=== PATIENT | female | born 1965 | race Caucasian/White ===

== ENCOUNTER 2024-04-23 07:49 | Emergency (ER) | payer MEDICAID, SELFPAY ==
[2024-04-23 07:50] VITALS: BP 157/100; PULSE 98; RESP 18; TEMP 37.2; O2SAT 97; BMI 40.4
[2024-04-23 07:52] VITALS: BP 157/100; PULSE 98; RESP 18; TEMP 37.2; O2SAT 97
--- NOTE | 2024-04-23 08:21 | EDS_ITS ---
HPI History of Present Illness Chief Complaint: Other, Pain/Inj Informant: patient Narrative Narrative: 59-year-old female presenting to the emergency room with facial swelling. Patient states that her stepfather recently passed in hospice care. She has been under a lot of stress and when she is under stress she tends to grind her teeth. She is developed some left facial swelling that is worsened and painful. She states she went to urgent care and was advised to come to the emergency room for blood work as they are concerned that the infection from her sinuses may be in her bloodstream. She states that she felt like she might have a fever last night. She felt that her heart was racing. She has a dentist. [facility] Medical History Arthritis Lyme disease Sjogren syndrome with other organ involvement Hypothyroid Home Medications ?Medication ?Instructions ?Recorded ?Last Taken ?Type amoxicillin 875 mg-potassium 875 mg PO Q12H #20 TABLETS 04/23/24 Unknown Rx clavulanate 125 mg tablet hydrocodone-acetaminophen 5-325mg 1 tab PO Q6H PRN PRN Pain 3 days 04/23/24 Unknown Rx 5mg-325mg #12 TABLETS naproxen 500 mg tablet (Naprosyn) 500 mg PO BID PRN pain #20 tabs 04/23/24 Unknown Rx ranolazine 1,000 mg 1,000 mg PO BID 04/23/24 Unknown History tablet,extended release,12 hr Allergy/AdvReac Type Severity Reaction Status Date / Time trazodone AdvReac OTHER Verified 04/23/24 07:51 Social History Smoking Status: Never smoker [facility] ED Constitutional Constitutional ED: Reports fever(s) and subjective; Denies chills or weight loss Eyes Eyes: Denies change in vision or diplopia ENT ENT ED: Reports other Details: See HPI ; Denies ear pain, rhinorrhea or sore throat Cardiovascular Cardiovascular: Reports racing heartbeat; Denies chest pain, orthopnea or palpitations Respiratory/Chest Respiratory/Chest: Denies cough, dyspnea or orthopnea Gastrointestinal Gastrointestinal: Denies abdominal pain, diarrhea, nausea or vomiting Genitourinary Genitourinary ED: Denies dysuria, hematuria or urinary frequency Musculoskeletal Musculoskeletal: Denies arthralgias or myalgias Integumentary Denies abscess or rash Neurologic Neurologic: Denies headache(s) or weakness Psychiatric Psychiatric: Denies anxiety, depression, suicidal ideation or suicidal thoughts Endocrine Endocrinology: Denies polydipsia, polyphagia or polyuria Allergic/Immunologic Allergic/Immunologic ED: Denies mouth swelling, tongue swelling or urticaria EXAM Physical Exam Const Vital Signs: 04/23/24 07:50 04/23/24 07:52 04/23/24 08:03 Temperature 99 F 99 F Temperature Source Temporal Temporal Pulse Rate 98 98 Respiratory Rate 18 18 Respiratory Effort Normal Non-Labored Respiratory Pattern Normal Blood Pressure 157/100 H 157/100 H Blood Pressure Mean 119 119 Pulse Ox 97 97 Oxygen Delivery Method Room Air Room Air Positive well nourished, well developed and obese General Appearance ED: well developed Nutritional Appearance: obese HEENT Reports normocephalic, head/scalp atraumatic and moist mucous membranes HEENT Narrative: Mild left maxillary facial swelling without erythema. Located along the gumline in the first premolar region is some erythema mild gum swelling. No obvious drainable abscess at this time. Floor the mouth is soft. Tongue appears normal. Hard palate appears normal soft palate appears normal there is no trismus. Tympanic membrane appears normal. There is no rash. Ocular exam is negative Eyes PERRL and EOMs intact bilaterally Neck no lymphadenopathy, supple and no JVD Resp normal respiratory effort and clear to auscultation bilaterally Cardio regular rate, regular rhythm and no murmurs GI normal to inspection, nondistended, normoactive bowel sounds and non-tender Palpation: soft Back/Spine no CVA tenderness and normal ROM Extremity normal to inspection General Extremety ED: Negative for edema General Extremity: Negative for edema Neuro oriented x3 and CN's II-XII intact bilaterally Sensorium / Orientation: alert Motor Exam: strength 5/5 throughout Psych mental status grossly normal Mood & Affect: Negative for depressed or tearful Skin no rashes or lesions noted and no wounds MDM MDM MDM Narrative Medical decision making narrative: Differential diagnosis includes but not limited to but not limited to dental abscess ANUG facial cellulitis periorbital cellulitis orbital cellulitis sinusitis shingles It appears that the patient has a dental abscess causing facial swelling. I do not feel strongly that the patient requires blood work. I believe she requires antibiotics ice anti-inflammatories pain control and definitive dental care. Patient will be placed on Augmentin and naproxen and hydrocodone/acetaminophen. Urged to see dentistry as soon as possible. History & Record Review Discussion w/independent historian: Patient Discharge Plan Triage Chief Complaint: Other, Pain/Inj ED Provider: Branden Arita Dx/Rx/DC Orders Clinical Impression: Dental abscess, Facial swelling Instructions: ED Dental Abscess Prescriptions: New hydrocodone-acetaminophen 5-325 mg tablet 1 tab PO Q6H PRN PRN (Reason: Pain) 3 Days Qty: 12 0RF naproxen [Naprosyn] 500 mg tablet 500 mg PO BID PRN (Reason: pain) Qty: 20 0RF amoxicillin-pot clavulanate 875-125 mg tablet 875 mg PO Q12H Qty: 20 0RF No Action ranolazine 1,000 mg tablet extended release 12 hr 1,000 mg PO BID Primary Care Provider: Meg Zapata Referrals: Meg Zapata, [employer] [Primary Care Provider] - Activity Restrictions/Additional Instructions: I strongly recommend that you schedule early follow-up with your dentist. This is to provide definitive dental care for the abscess. Print Language: Indonesian Disposition Disposition: Home, Self Care
== END 2024-04-23 08:27 | disposition home or self-care (01) ==
PROVIDERS: Emergency Provider Emergency Medicine; PCP Nurse Practitioner Family; Visit Provider Emergency Medicine
DX: K04.7 Periapical abscess without sinus (principal); R22.0 Localized swelling, mass and lump, head; M35.09 Sjogren syndrome with other organ involvement; E03.9 Hypothyroidism, unspecified; Z79.899 Other long term (current) drug therapy
CPT/HCPCS: 99282

== ENCOUNTER → 2024-08-18 | Outpatient (CLI) | payer MEDICAID, SELFPAY ==
[2024-08-18 08:51] LABS: Absolute Lymphocyte Count 1.99 X10^3/uL (0.83-4.51); Absolute Neutrophil Count 4.7 X10^3/uL (2.0-7.7); Basophil# 0.05 X10^3/uL; Basophil% 0.7 % (0-1); Eosinophil# 0.17 X10^3/uL; Eosinophils% 2.3 % (0-5); Hematocrit 40.3 % (37-47); Hemoglobin 12.7 g/dL (12.0-15.0); Lymphocyte # 1.99 X10^3/ul (0.83-4.51); Lymphocyte % 27.1 % (19-41); Mean Corp Hgb Conc 31.5 g/dL (32-36); Mean Corpuscular Hgb 30.8 pg (27.0-32.0); Mean Corpuscular Volume 97.6 fL (81-99); Mean Platelet Vol. 10.1 fl (6.2-12.0); Monocyte# 0.42 X10^3/uL; Monocyte% 5.7 % (0-10); NRBC Flagged by Analyzer 0 % (0-5); Neutrophil % 64.1 % (47-70); Platelet Count 215 K/mm3 (150-450); RBC Distribution Width CV 17.6 % (11.6-14.6); RBC Distribution Width SD 63.2 fl (35.1-43.9); Red Blood Count 4.13 M/mm3 (4.2-5.4); White Blood Count 7.3 K/mm3 (4.4-11.0)
[2024-08-18 08:57] LABS: Erythrocyte Sedimentation Rate 18 mm/hr (0-30)
[2024-08-18 09:35] LABS: ALB/GLOB Ratio 1.1 RATIO (0.9-2.4); AST(SGOT) 16 U/L (15-37); Alanine Aminotransfer ALT/SGPT 33 U/L (13-56); Albumin, Serum 4.1 g/dL (3.2-5.0); Alkaline Phosphatase 115 U/L (45-117); Anion Gap 8 (5-15); BUN 16 mg/dL (7-18); BUN/Creat Ratio 13.9 RATIO (10-20); CRP 4.89 mg/L (0.0-3.0); Calcium,Total 9.7 mg/dL (8.5-10.1); Chloride 108 mmol/L (98-107); Creatinine, Serum 1.15 mg/dL (0.55-1.02); EST Glomerular Filtration Rate 52 mL/min (>60); Est Glom Filt Rate - Afr Amer 62 mL/min (>60); Globulin 3.7 g/dL (2.2-4.2); Glucose 120 mg/dL (74-106); LDH 98 U/L (84-246); Potassium 4.2 mmol/L (3.5-5.1); Protein, Total 7.8 g/dL (6.4-8.2); Sodium Level 140 mmol/L (136-145); T4 Free Direct 1.24 ng/dL (0.76-1.46)
[2024-08-22 17:07] LABS: Anti-Centromere B Ab <0.2 AI (0.0-0.9); Anti-Chromatin <0.2 AI (0.0-0.9); Anti-Jo <0.2 AI (0.0-0.9); Anti-Scleroderma-70 AB <0.2 AI (0.0-0.9); Anti-dsDNA Ab <1 IU/mL (0-9); Beef <0.10 kU/L (Class 0); Chocolate <0.10 kU/L (Class 0); Codfish <0.10 kU/L (Class 0); Corn <0.10 kU/L (Class 0); Egg, Whole <0.10 kU/L (Class 0); Milk (Cow) <0.10 kU/L (Class 0); Mussels <0.10 kU/L (Class 0); Peanut <0.10 kU/L (Class 0); Pork <0.10 kU/L (Class 0); RNP Ab 0.2 AI (0.0-0.9); SJOGREN'S Anti-SS-A test < 0.2 AI (0.0-0.9); SJOGREN'S Anti-SS-B test < 0.2 AI (0.0-0.9); Salmon <0.10 kU/L (Class 0); Shrimp <0.10 kU/L (Class 0); Smith Ab <0.2 AI (0.0-0.9); Soybean <0.10 kU/L (Class 0); Tuna <0.10 kU/L (Class 0); Wheat <0.10 kU/L (Class 0)
[2024-08-23 16:09] LABS: ACCA 5 units (0-90); ALCA 6 units (0-60); AMCA 23 units (0-100); Albumin 3.8 g/dL (2.9-4.4); Alpha-1-Globulins 0.2 g/dL (0.0-0.4); Alpha-2-Globulins 0.8 g/dL (0.4-1.0); Cytoplasmic Ab (C-ANCA) <1:20 titer (Neg:<1:20); Endomysial Antibody IgA Negative (Negative); Gamma Globulin 1.2 g/dL (0.4-1.8); Immunoglobulin A 92 mg/dL (87-352); Immunoglobulin E 23 IU/mL (6-495); Immunoglobulin G 663 mg/dL (586-1602); Immunoglobulin M 1001 mg/dL (26-217); PROEL- TOTAL PROTEIN 7.2 g/dL (6.0-8.5); Perinuclear Ab (P-ANCA) <1:20 titer (Neg:<1:20); gASCA 16 units (0-50); t-Transglutaminase IgA <2 U/mL (0-3)
== END | disposition home or self-care (01) ==
LOC: LAB 08:29
PROVIDERS: PCP Nurse Practitioner Family
DX: K58.9 Irritable bowel syndrome, unspecified (principal); K22.70 Barrett's esophagus without dysplasia
CPT/HCPCS: 36415; 80053; 82784; 82785; 83516; 83615; 84165; 84439; 84443; 84481; 85025; 85652; 86003; 86005; 86036; 86037; 86140; 86225; 86235; 86255; 86334; 86671

== ENCOUNTER → 2024-09-08 | Outpatient (CLI) | payer MEDICAID, SELFPAY ==
--- NOTE | 2024-09-08 07:17 | CT_ITS ---
INDICATION: chronic diarrhea -- IV/PO contrrast EXAMINATION: CT Abdomen And Pelvis W/ Contrast Injection TECHNIQUE: Helically acquired images were obtained of the abdomen and pelvis with sagittal and coronal reconstructed images. Individualized dose optimization techniques were used for this CT. IV contrast dosage and agent: 100 mL of Isovue-370. Oral contrast: Contrast seen in the stomach, small bowel and proximal colon. COMPARISON: None. FINDINGS: VESSELS: No abdominal aortic aneurysm or dissection. Circumaortic left renal vein. LIVER: No evidence of a mass. No intrahepatic or extrahepatic biliary duct dilation. Mild diffuse decreased attenuation of the liver which may represent fatty infiltration. GALLBLADDER: Status post cholecystectomy. PANCREAS: No focal solid or cystic mass. No evidence of pancreatitis. SPLEEN: Normal. ADRENAL GLANDS: Normal. KIDNEYS AND URETERS: No urinary tract stone. No hydronephrosis or hydroureter. No significant asymmetric perinephric stranding. URINARY BLADDER: Unremarkable. BOWEL: No evidence of diverticulosis or diverticulitis. Appendix appears normal. No evidence of bowel obstruction. REPRODUCTIVE ORGANS: No evidence of a pelvic mass. PERITONEUM: No intraabdominal free fluid or free air. LYMPH NODES: No pathologically enlarged mesenteric or retroperitoneal lymph nodes. ABDOMINAL WALL: No abdominal or pelvic wall hernia. BONES: No acute abnormality. LOWER CHEST: Visualized lung bases are unremarkable. CT/Abdomen/Pelvis WITH Contrast IMPRESSION: 1. No acute abnormality. 2. Decreased attenuation of the liver which may represent fatty infiltration. Electronically Signed: Grayson Basurto DO at 22:54 EDT ,
== END | disposition home or self-care (01) ==
LOC: CT 07:17
PROVIDERS: PCP Nurse Practitioner Family
DX: K22.70 Barrett's esophagus without dysplasia (principal); K58.9 Irritable bowel syndrome, unspecified
CPT/HCPCS: 74177; Q9967

== ENCOUNTER → 2024-09-24 | Outpatient (CLI) | payer MEDICAID, SELFPAY ==
[2024-09-27 19:07] LABS: Pancreatic Elastase, Fecal > 800 (>200)
[2024-09-28 15:08] LABS: Calprotectin, Stool 97 ug/g (0-120)
== END | disposition home or self-care (01) ==
LOC: LABSPEC 16:23
PROVIDERS: PCP Nurse Practitioner Family
DX: K58.9 Irritable bowel syndrome, unspecified (principal); K22.70 Barrett's esophagus without dysplasia
CPT/HCPCS: 82653; 83630; 83993; 87177; 87209; 87329; 87493; 87506

== ENCOUNTER → 2024-09-27 | Outpatient (CLI) | payer MEDICAID, SELFPAY | END | disposition home or self-care (01) | LOC: NM 10:56 | PROVIDERS: PCP Nurse Practitioner Family | DX: K22.70 Barrett's esophagus without dysplasia (principal); K58.9 Irritable bowel syndrome, unspecified | CPT/HCPCS: 78264; A9541 ==

== ENCOUNTER 2024-10-07 10:11 | Inpatient (IN) | payer MEDICAID, SELFPAY ==
[2024-10-07] VITALS (7 sets, daily range): BP systolic 116–156; BP diastolic 75–90; PULSE 53–86; RESP 12–22; TEMP 36.2–36.7; O2SAT 95–100; BMI 38.4; BMI 40.6
[2024-10-07] MEDS: diazePAM 2 MG Tablet PO (11:06)
[2024-10-07] MEDS: Morphine 4 MG/ML Syringe IV (11:06)
[2024-10-07 11:08] LABS: Absolute Lymphocyte Count 2.13 X10^3/uL (0.83-4.51); Absolute Neutrophil Count 5.5 X10^3/uL (2.0-7.7); Basophil# 0.06 X10^3/uL; Basophil% 0.7 % (0-1); Eosinophil# 0.18 X10^3/uL; Eosinophils% 2.2 % (0-5); Lymphocyte # 2.13 X10^3/ul (0.83-4.51); Lymphocyte % 25.7 % (19-41); Mean Corp Hgb Conc 32.5 g/dL (32-36); Mean Corpuscular Hgb 31.1 pg (27.0-32.0); Mean Corpuscular Volume 95.7 fL (81-99); Mean Platelet Vol. 9.6 fl (6.2-12.0); Monocyte# 0.43 X10^3/uL; Monocyte% 5.2 % (0-10); NRBC Flagged by Analyzer 0 % (0-5); Neutrophil # 5.45 X10^3/uL (2.7-7.7); Neutrophil % 65.8 % (47-70); Platelet Count 242 K/mm3 (150-450); RBC Distribution Width CV 15.1 % (11.6-14.6); RBC Distribution Width SD 52.4 fl (35.1-43.9); Red Blood Count 4.18 M/mm3 (4.2-5.4); White Blood Count 8.3 K/mm3 (4.4-11.0)
[2024-10-07] MEDS: Ondansetron 4 MG/2 ML Vial IV (11:14)
[2024-10-07 11:16] LABS: International Normalized Ratio 0.9; Prothrombin Time (Protime)PT. 12.4 SECONDS (11.7-14.9)
[2024-10-07 11:18] LABS: Partial Thromboplast Time 30.2 Seconds (24.1-36.2)
[2024-10-07 11:32] LABS: BNP,B-Type NATRIURETIC PEPTIDE 12.3 pg/mL (0-100)
[2024-10-07 11:47] LABS: Anion Gap 6 (5-15); BUN 15 mg/dL (7-18); BUN/Creat Ratio 13.6 RATIO (10-20); Calcium,Total 9.2 mg/dL (8.5-10.1); Chloride 106 mmol/L (98-107); EST Glomerular Filtration Rate 54 mL/min (>60); Est Glom Filt Rate - Afr Amer 66 mL/min (>60); Estimated Creatinine Clearance 65.44 ml/min; Glucose 135 mg/dL (74-106); Potassium 4.3 mmol/L (3.5-5.1); Sodium Level 137 mmol/L (136-145); Troponin-I HS (w/2H Reflex) 198 pg/mL (3.0-54.0)
[2024-10-07 13:05] LABS: Reflex Troponin-HS? (from REC) Y
[2024-10-07 13:36] LABS: Troponin-I HS 200 pg/mL (3.0-54.0)
[2024-10-07] MEDS: Nitroglycerin SL (ED/IMG/CATH) 0.4 MG TABLET SL (13:47)
[2024-10-07] MEDS: 0.9% Normal Saline (1000mL) 1,000 ML 999 ML IV (13:49)
[2024-10-07] MEDS: Ibuprofen 400 MG Tablet 800 MG PO ×2 (16:41→21:10)
[2024-10-07 19:20] LABS: Troponin-I HS 163 pg/mL (3.0-54.0)
[2024-10-07] MEDS: Nystatin Powder 15gm Bottle 1 APPLIC TOPICAL (21:10)
[2024-10-07] MEDS: Gabapentin 300 MG Capsule PO (21:10)
[2024-10-07 21:27] LABS: Troponin-I HS 157 pg/mL (3.0-54.0)
[2024-10-08 01:48] LABS: Troponin-I HS 158 pg/mL (3.0-54.0)
[2024-10-08 03:42] VITALS: BP 109/71; PULSE 77; RESP 18; TEMP 35.9; O2SAT 95
[2024-10-08 03:45] VITALS: O2SAT 95
[2024-10-08 04:11] VITALS: BMI 40.3
[2024-10-08 06:31] LABS: Absolute Lymphocyte Count 1.77 X10^3/uL (0.83-4.51); Absolute Neutrophil Count 4.8 X10^3/uL (2.0-7.7); Basophil# 0.03 X10^3/uL; Basophil% 0.4 % (0-1); Eosinophil# 0.17 X10^3/uL; Eosinophils% 2.4 % (0-5); Hematocrit 35.7 % (37-47); Hemoglobin 11.5 g/dL (12.0-15.0); Lymphocyte # 1.77 X10^3/ul (0.83-4.51); Lymphocyte % 24.7 % (19-41); Mean Corp Hgb Conc 32.2 g/dL (32-36); Mean Corpuscular Hgb 31.2 pg (27.0-32.0); Mean Corpuscular Volume 96.7 fL (81-99); Mean Platelet Vol. 9.9 fl (6.2-12.0); Monocyte# 0.41 X10^3/uL; Monocyte% 5.7 % (0-10); NRBC Flagged by Analyzer 0 % (0-5); Neutrophil # 4.76 X10^3/uL (2.7-7.7); Neutrophil % 66.4 % (47-70); Platelet Count 209 K/mm3 (150-450); RBC Distribution Width CV 15.2 % (11.6-14.6); RBC Distribution Width SD 54.5 fl (35.1-43.9); Red Blood Count 3.69 M/mm3 (4.2-5.4); White Blood Count 7.2 K/mm3 (4.4-11.0)
[2024-10-08 06:44] LABS: International Normalized Ratio 0.9; Prothrombin Time (Protime)PT. 12.4 SECONDS (11.7-14.9)
[2024-10-08 06:59] LABS: ALB/GLOB Ratio 0.9 RATIO (0.9-2.4); AST(SGOT) 8 U/L (15-37); Alanine Aminotransfer ALT/SGPT 15 U/L (13-56); Alkaline Phosphatase 102 U/L (45-117); Anion Gap 5 (5-15); BUN 19 mg/dL (7-18); BUN/Creat Ratio 20.1 RATIO (10-20); Bilirubin, Direct 0.05 mg/dL (0.00-0.30); Calcium,Total 8.8 mg/dL (8.5-10.1); Chloride 107 mmol/L (98-107); Creatinine, Serum 0.95 mg/dL (0.55-1.02); EST Glomerular Filtration Rate 65 mL/min (>60); Est Glom Filt Rate - Afr Amer 78 mL/min (>60); Estimated Creatinine Clearance 77.79 ml/min; Globulin 3.2 g/dL (2.2-4.2); Glucose 125 mg/dL (74-106); Magnesium 2.4 mg/dL (1.6-2.6); Phosphorus 3.8 mg/dL (2.5-4.9); Potassium 4.3 mmol/L (3.5-5.1); Protein, Total 6.2 g/dL (6.4-8.2); Sodium Level 139 mmol/L (136-145)
[2024-10-08 07:30] VITALS: O2SAT 95
[2024-10-08 09:32] VITALS: BP 110/81; PULSE 70; RESP 16; TEMP 36.1; O2SAT 98
[2024-10-08] MEDS: Gabapentin 300 MG Capsule PO (09:42)
[2024-10-08] MEDS: Ibuprofen 400 MG Tablet 800 MG PO ×2 (09:42→13:37)
[2024-10-08] MEDS: Levothyroxine 100 MCG Tablet 200 MCG PO (09:42)
[2024-10-08] MEDS: Enoxaparin 40 MG/0.4 ML Syringe SC (09:43)
[2024-10-08] MEDS: Nystatin Powder 15gm Bottle 1 APPLIC TOPICAL (09:43)
[2024-10-08 13:17] LABS: Cholesterol 235 mg/dL (200); High Density Lipoprotein 28 mg/dL; Triglycerides 226 mg/dL; Very Low Density Lipoprotein 45 mg/dL (5-40)
[2024-10-08 13:18] LABS: Erythrocyte Sedimentation Rate 33 mm/hr (0-30)
[2024-10-08 13:30] VITALS: BP 129/83; PULSE 68; RESP 18; TEMP 36.5; O2SAT 95
[2024-10-08] MEDS: Aspirin E.C. 81 MG Tablet PO (13:31)
[2024-10-08] MEDS: Clopidogrel Bisulfate 75 MG Tablet PO (13:31)
[2024-10-08] MEDS: amLODIPine 2.5 MG Tablet PO (13:31)
[2024-10-08] MEDS: Pantoprazole Sodium 20 MG Tablet PO (13:31)
[2024-10-08] MEDS: guaiFENesin/Codeine 5 ML UDC 10 ML PO (13:38)
[2024-10-08 14:49] LABS: T4 Free Direct 0.71 ng/dL (0.76-1.46)
[2024-10-11 16:09] LABS: Mycoplasma Pneum AB IgG 172 U/mL (0-99); Mycoplasma pneum. AB IgM < 770 U/mL (0-769)
== END 2024-10-08 16:04 | disposition home or self-care (01) | DRG 203 ==
LOC: ED 10:37 → PCU 14:51
PROVIDERS: Internal Medicine Cardiovascular Disease; Admitting Provider Internal Medicine; Emergency Provider Surgery; PCP Nurse Practitioner Family
DX: M94.0 Chondrocostal junction syndrome [Tietze] (principal); J15.7 Pneumonia due to Mycoplasma pneumoniae; J44.0 Chronic obstructive pulmonary disease with (acute) lower respiratory infection; E03.9 Hypothyroidism, unspecified; I25.10 Atherosclerotic heart disease of native coronary artery without angina pectoris; F17.210 Nicotine dependence, cigarettes, uncomplicated; Z90.710 Acquired absence of both cervix and uterus; Z86.73 Personal history of transient ischemic attack (TIA), and cerebral infarction without residual deficits; Z90.49 Acquired absence of other specified parts of digestive tract; R73.03 Prediabetes
CPT/HCPCS: 36415; 71275; 80048; 80053; 80061; 80076; 83036; 83735; 83880; 84100; 84439; 84443; 84484; 85025; 85610; 85652; 85730; 86738; 87631; 93005; 93306; 99285; 99406; J7030; Q9967; A4216; J2405

== ENCOUNTER → 2024-12-31 | Outpatient (CLI) | payer MEDICAID, SELFPAY ==
--- NOTE | 2024-12-31 07:04 | US_ITS ---
PROCEDURE: ABD LIMITED W/ ELASTOGRAPHY REASON FOR EXAM: Fatty infiltration of the liver. COMPARISON: None. TECHNIQUE: Right upper quadrant abdominal ultrasound. Marcia ElastQ Imaging shear wave elastography for non-invasive assessment of liver tissue stiffness. Marcia EPIQ Elite. FINDINGS: LIVER: Size: Unremarkable Length: 17.3 cm Echotexture: Diffusely echogenic suggesting fatty infiltration Contour: Normal Lesions: None identified Elastography: EQI Med: 17.33 kPa EQI Med Dimitris: 2.39 m/s IQR/Med: 11 %* GALLBLADDER: Surgically absent. COMMON BILE DUCT: Normal measures 3 mm.. PANCREAS: Normal Visualized portions of the right kidney are unremarkable. No right upper quadrant ascites. US/ABD Limited w/ Elastography IMPRESSION: SEVERE HEPATIC FIBROSIS / CIRRHOSIS Reference Values: SRU <1.37 m/s (5.7kPa): No to mild fibrosis 1.37 m/s - 2.2 m/s: Moderate to severe fibrosis >2.2 m/s (15kPa): Significant fibrosis / cirrhosis METAVIR Score F2 or higher: 1.34 m/s (5.7kPa) F3 or higher: 1.55 m/s (7.3kPa) F4: 1.80 m/s (10kPa) * If the IQR/Med is >30%, the variance in the measurements is a large and the a ccuracy of the measurement may be in question. Reading Location: [place] [id number]
== END | disposition home or self-care (01) ==
LOC: US 07:03
PROVIDERS: PCP Nurse Practitioner Family
DX: K76.0 Fatty (change of) liver, not elsewhere classified (principal)
CPT/HCPCS: 76705; 76981

== ENCOUNTER → 2025-01-03 | Outpatient (CLI) | payer MEDICAID, SELFPAY ==
[2025-01-03 15:04] LABS: Platelet Count 264 K/mm3 (150-450)
== END | disposition home or self-care (01) ==
LOC: LAB 14:05
PROVIDERS: PCP Nurse Practitioner Family
DX: K74.00 Hepatic fibrosis, unspecified (principal)
CPT/HCPCS: 36415; 85049; 85610; 85730

== ENCOUNTER → 2025-01-24 | Outpatient (CLI) | payer MEDICAID, SELFPAY ==
[2025-01-24] VITALS (12 sets, daily range): BP systolic 136–176; BP diastolic 74–129; PULSE 68–82; RESP 18–31; TEMP 36.1; O2SAT 92–98; BMI 41.5
--- NOTE | 2025-01-24 | LIVB_PTH ---
PATIENT: NICO VITAL LOC: IN U#:[id number] AGE/SX: 59/F ROOM: RE01/24/[address]: ALONZO Morris : 1965 BED: DIS: 01/24/2025 SPEC #: [id number] RECD: 01/24/25 10:43 STATUS: PAXTON REJonathan #: [id number] ELOISA: 01/24/25 00:[address]: Dennise Jimenez DEPT: SURGICAL PATHOLOGY RECD BY: Nataliya Fish ENTERED: 01/24/25 11:09 SP TYPE: LIVER BX OTHR DR: ALONZO Gomez Tissues: Liver, NOS Procedures: PAS with Diastase (control) Trichrome (control) Special Stain Group I PAS Stain (control) Surgery Specimen Level V Retic (control) Iron Stain (control) HEADER OPERATION: CT- guided liver biopsy PRE-OP DIAGNOSIS: Fatty liver TISSUE SUBMITTED: 18 gauge x 4 cores MICROSCOPIC DIAGNOSIS A. Liver core biopsies, CT guided: a. 5 liver core biopsies with adequate portal tracts for evaluation. b. Predominant pattern: Mild macrosteastosis. c. Lymphocytic inflammation in portal tract with very little interface hepatitis (Stage 2). d. Portal fibrosis with no bridging fibrosis (Stage 1). e. Occasional bile duct proliferation. f. No hepatocyte necrosis or malignancy. 02/02/2025 COMMENT Possible causes for this pattern of hepatic injury include alcohol and metabolic syndrome. Consultation should be made with the patient's history, radiologic studies, and laboratory findings. MICROSCOPIC DESCRIPTION Slides are reviewed. No cholestasis identified. A reticulin stain with appropriate controls shows the hepatocyte plates to be of appropriate thickness. An iron stain with controls shows no iron deposition. PAS stains with and without diastase and appropriate controls show glycogen and no PAS positive / diastase resistant material. A trichrome stain shows mild portal fibrosis. GROSS DESCRIPTION A. Received in fixative is one container labeled with the patient's name and designated CT-guided liver biopsy. The specimen consists of four 18gauge needle cores. Three of them measure 1.8cm in length and the fourth measures 1.1cm in length submitted in their entirety in one cassette. mr 01/24/2025 CPT:58479 ,[id number]
[2025-01-24 09:18] LABS: Absolute Lymphocyte Count 2.46 X10^3/uL (0.83-4.51); Absolute Neutrophil Count 7.8 X10^3/uL (2.0-7.7); Basophil# 0.05 X10^3/uL; Basophil% 0.5 % (0-1); Eosinophil# 0.12 X10^3/uL; Eosinophils% 1.1 % (0-5); Hematocrit 40.3 % (37-47); Hemoglobin 12.5 g/dL (12.0-15.0); Lymphocyte # 2.46 X10^3/ul (0.83-4.51); Lymphocyte % 22.2 % (19-41); Mean Corpuscular Hgb 30.6 pg (27.0-32.0); Mean Corpuscular Volume 98.8 fL (81-99); Mean Platelet Vol. 10.7 fl (6.2-12.0); Monocyte# 0.64 X10^3/uL; Monocyte% 5.8 % (0-10); NRBC Flagged by Analyzer 0 % (0-5); Neutrophil # 7.76 X10^3/uL (2.7-7.7); Neutrophil % 69.9 % (47-70); Platelet Count 250 K/mm3 (150-450); RBC Distribution Width CV 15.2 % (11.6-14.6); RBC Distribution Width SD 55.7 fl (35.1-43.9); Red Blood Count 4.08 M/mm3 (4.2-5.4); White Blood Count 11.1 K/mm3 (4.4-11.0)
[2025-01-24 09:34] LABS: Prothrombin Time (Protime)PT. 12.9 SECONDS (11.7-14.9)
[2025-01-24] MEDS: Midazolam 2 MG/2 ML Syringe IV (10:11)
[2025-01-24] MEDS: fentaNYL 100 MCG/2 ML Ampul IV ×2 (10:13→10:30)
[2025-01-24] MEDS: 0.9% Saline Lock 10 ML Syringe IV (10:14)
--- NOTE | 2025-01-24 10:15 | CT_ITS ---
PROCEDURE: BIOPSY/INJ OR NEEDLE PLACEMENT REASON FOR EXAM: METAVIR F4 TECHNIQUE: The procedure as well as the benefits and possible complications including infection and bleeding were explained to the patient. Informed consent was obtained. The patient was brought into the CT scan unit. Conscious sedation was performed. The patient received 2 mg of Versed and 75 mcg of fentanyl intravenously. Conscious sedation was started at 10:11 a.m. and terminated at 10:33 a.m.. The patient was independently monitored by the department nurse. The overlying skin was prepped and draped in usual sterile fashion. Following local anesthetic application, 4 core biopsies of the left lobe of the liver were performed utilizing 18 gauge core biopsy needle system. The patient tolerated the procedure well. No immediate complication was identified. COMPARISON: None. FINDINGS: Successful CT-guided core biopsies of the left lobe of the liver. CT/Biopsy/Inj or Needle Placement IMPRESSION: Successful CT-guided core biopsies of the left lobe of the liver as described. The patient tolerated the procedure well. No immediate complication is identified. One or more dose reduction techniques were used (e.g., Automated exposure contr ol, adjustment of the mA and/or kV according to patient size, use of iterative reconstruction technique). Reading Location: [place] [address]
[2025-01-24] MEDS: Lidocaine 2% (20 ml mdv) 20 ML Vial INFILT (10:30)
== END | disposition home or self-care (01) ==
LOC: CT 08:56
PROVIDERS: Radiology Diagnostic Radiology; PCP Nurse Practitioner Family
DX: K76.0 Fatty (change of) liver, not elsewhere classified (principal)
CPT/HCPCS: 47000; 36415; 77012; 85025; 85610; 85730; 88307; 99156; A4216

== ENCOUNTER 2025-02-10 11:17 | Day surgery (SDC) | payer MEDICAID, SELFPAY ==
--- NOTE | 2025-02-07 14:32 | PAT.ANESEVAL ---
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 When Was Last Pacemaker Check QUESTION #4 FULL TEXT: You/Your Family Experience fever (hyperthermia) with Anesthesia Last Oral Intake Last Oral intake: Last Oral Intake NPO since Meds taken in AM with sips of water? Meds patient instructed to take am of surgery PONV PONV - game programmer: PONV - game programmer Female Yes 02/07/25 14:04 HX of Motion Sickness No 02/07/25 14:04 HX of N/V After Surgery No 02/07/25 14:04 Non-Smoker No 02/07/25 14:04 Duration of Surgery greater No 02/07/25 14:04 than 60 minutes Number of Risk Factors 1 02/07/25 14:04 PONV Score Low Risk 02/07/25 14:04 Height & Weight Height & Weight: Anesthesia: Height & Weight Height 5 ft 4 in 10/07/24 15:17 Respiratory Assessment Respiratory Assessment - game programmer: Respiratory Tract Infection Hx - game programmer Hx Respiratory Tract Infection No 02/07/25 14:04 STOP Sleep Apnea STOP Sleep Apnea - game programmer: STOP Sleep Apnea - game programmer Hx Hypertension No 02/07/25 14:04 Hx Sleep Apnea Yes 02/07/25 14:04 CPAP Yes 02/07/25 14:04 BIPAP No 02/07/25 14:04 Do you snore loudly (louder than talking or can be heard Do you often feel tired/ fatigued/ sleepy during daytime? Has anyone observed you stop breathing during sleep? STOP Results Positive 02/07/25 14:04 QUESTION #5 FULL TEXT : Do you snore loudly (louder than talking or can be heard through closed doors)? Tobacco Use History Tobacco Use History - game programmer: Tobacco Use History - game programmer Tobacco Use Smoking Status Current every day smoker 02/07/25 14:04 Hx Tobacco Use Yes 02/07/25 14:04 Years Smoking Packs Smoked per Day Smoking Cessation Date was within the last 15 years Hx Smoking Cessation Date Hx Smoking Cessation Counseling Hematologic Medial History Hematologic Hx - game programmer: Hematologic Medical Hx - milk of lime slaker Hx of Blood Transfusion No 02/07/25 14:04 Hx of Transfusion in last 3 No 02/07/25 14:04 Months Date of Last Transfusion (if within last 3 months) Ever experience any problems No 02/07/25 14:04 with transfusion(s)? Specify any problems Hx of Preganancy in last 3 No 02/07/25 14:04 Months Nurse Filling Out Transfusion VLEHMAN 02/07/25 14:04 & Questions: Date: 02/07/25 02/07/25 14:04 Time: 14:17 02/07/25 14:04 Patient unable to answer at this time (ie. confused, unrespo /Reproduction History /Reproductive History - game programmer: /Reproductive Hx- game programmer Hx Now No 02/07/25 14:04 Gestational Age (in weeks): EDC: Hx Hx Para Hx Section SAB No 02/07/25 14:04 PFSH Medical History (Updated 02/07/25 @ 14:16 by Rylie Coe) Wears glasses Cancer Anxiety Thyroid disease Diabetes Ambulates with cane Anemia Hepatitis High cholesterol Migraine headache Difficulty swallowing Heartburn Gastric reflux Smoker CPAP (continuous positive airway pressure) dependence Sleep apnea Asthma Shortness of breath on exertion Hoarseness Chronic cough Leg cramps History of echocardiogram History of stress test Cardiology follow-up encounter Mycoplasma pneumonia Controlled type 2 diabetes mellitus TIA (transient ischemic attack) CHINO (obstructive sleep apnea) Depression Cardiac microvascular disease CAD (coronary artery disease) Arthritis Lyme disease Sjogren syndrome with other organ involvement Hypothyroid Home Medications ?Medication ?Instructions ?Recorded ?Last Taken ?Type gabapentin 300 mg capsule 300 mg PO BID 08/18/24 10/06/24 History levothyroxine 200 mcg tablet 200 mcg PO DAILY 10/07/24 10/06/24 History metoclopramide HCl 5 mg tablet 5 mg PO QAC #90 tabs 10/11/24 Unknown Rx (Reglan) bupropion HCl 150 mg tablet,12 hr 150 mg PO BID 12/17/24 Unknown History sustained-release (Wellbutrin SR) famotidine 20 mg tablet 20 mg PO QHS #30 tabs 12/17/24 Unknown Rx pantoprazole 20 mg tablet,delayed 20 mg PO QDAY #30 tabs 12/17/24 Unknown Rx release ranolazine 500 mg tablet,extended 1,000 mg PO BID 12/17/24 Unknown History release,12 hr metformin 500 mg tablet,extended 500 mg PO DAILY 01/21/25 Unknown History release 24 hr pravastatin 10 mg tablet 10 mg PO DAILY 01/21/25 Unknown History vitamin E (dl, acetate) 180 mg 180 mg PO DAILY 02/07/25 Unknown History (400 unit) capsule Allergy/AdvReac Type Severity Reaction Status Date / Time trazodone AdvReac OTHER Verified 02/07/25 13:59 Family History Mother Arthritis Hypertension HLD (hyperlipidemia) TIA (transient ischemic attack) Father Heart disease Hypertension HLD (hyperlipidemia) Surgical History (Updated 02/07/25 @ 14:16 by Rylie Coe) History of cardiac catheterization History of partial hysterectomy History of cholecystectomy Social History Smoking Status: Current every day smoker tobacco type: cigarettes alcohol intake: never substance use type: marijuana Audit: Pertinent Findings Pertinent Findings EKG Perinent findings: October 07, 2024. Normal sinus rhythm 60 bpm. Nonspecific T wave abnormality. Echo (EF%) pertinent findings: 10/08/2024. EF 65% mild left ventricular hypertrophy. Recommendation Anesthesia Recommendation Anesthesia recommendation: OPTIMIZED for anesthesia
[2025-02-10] VITALS (7 sets, daily range): BP systolic 97–135; BP diastolic 69–83; PULSE 82–88; RESP 16–18; TEMP 36.3–36.9; O2SAT 93–97; BMI 39.7
[2025-02-10 11:55] LABS: Absolute Lymphocyte Count 1.29 X10^3/uL (0.83-4.51); Absolute Neutrophil Count 4.4 X10^3/uL (2.0-7.7); Basophil# 0.03 X10^3/uL; Basophil% 0.5 % (0-1); Eosinophil# 0.24 X10^3/uL; Eosinophils% 3.8 % (0-5); Hematocrit 39.7 % (37-47); Hemoglobin 12.6 g/dL (12.0-15.0); Lymphocyte # 1.29 X10^3/ul (0.83-4.51); Lymphocyte % 20.3 % (19-41); Mean Corp Hgb Conc 31.7 g/dL (32-36); Mean Corpuscular Hgb 29.9 pg (27.0-32.0); Mean Corpuscular Volume 94.3 fL (81-99); Mean Platelet Vol. 10.2 fl (6.2-12.0); Monocyte# 0.38 X10^3/uL; NRBC Flagged by Analyzer 0 % (0-5); Neutrophil % 68.9 % (47-70); Platelet Count 226 K/mm3 (150-450); RBC Distribution Width CV 14.6 % (11.6-14.6); RBC Distribution Width SD 51.5 fl (35.1-43.9); Red Blood Count 4.21 M/mm3 (4.2-5.4); White Blood Count 6.4 K/mm3 (4.4-11.0)
--- NOTE | 2025-02-10 12:16 | PCM.HP.STD ---
HPI - General General Date of Admission: 02/10/25 Date of Service: 02/10/25 Chief Complaint: abdominal pain and GERD HPI Narrative NICO VITAL, is a 59 F who reports daily heartburn and nightly reflux, abdominal bloating and pressure, stomach fullness and urgent bowel movements after eating with incomplete emptying. She denies difficulty chewing and swallowing, abdominal pain, constipation, diarrhea, hematochezia, and melena. Hospitalization 10.07.24 for mycoplasma pneumonia. Recently restarted metformin daily for hgb A1c of 6, increased to 6.7 at November testing; started on statin per PCP d/t elevated lipid levels. 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 Reports trying metoclopramide and states it caused immediate diarrhea and then stopped it. [facility] Medical History Wears glasses Cancer Anxiety Thyroid disease Diabetes Ambulates with cane Anemia Hepatitis High cholesterol Migraine headache Difficulty swallowing Heartburn Gastric reflux Smoker CPAP (continuous positive airway pressure) dependence Sleep apnea Asthma Shortness of breath on exertion Hoarseness Chronic cough Leg cramps History of echocardiogram History of stress test Cardiology follow-up encounter Mycoplasma pneumonia Controlled type 2 diabetes mellitus TIA (transient ischemic attack) CHINO (obstructive sleep apnea) Depression Cardiac microvascular disease CAD (coronary artery disease) Arthritis Lyme disease Sjogren syndrome with other organ involvement Hypothyroid Home Medications ?Medication ?Instructions ?Recorded ?Last Taken ?Type gabapentin 300 mg capsule 300 mg PO BID 08/18/24 02/09/25 History levothyroxine 200 mcg tablet 200 mcg PO DAILY 10/07/24 02/10/25 History metoclopramide HCl 5 mg tablet 5 mg PO QAC #90 tabs 10/11/24 Unknown Rx (Reglan) bupropion HCl 150 mg tablet,12 hr 150 mg PO DAILY 12/17/24 02/09/25 History sustained-release (Wellbutrin SR) famotidine 20 mg tablet 20 mg PO QHS #30 tabs 12/17/24 02/09/25 Rx pantoprazole 20 mg tablet,delayed 20 mg PO QDAY #30 tabs 12/17/24 02/10/25 Rx release ranolazine 500 mg tablet,extended 1,000 mg PO BID 12/17/24 02/09/25 History release,12 hr metformin 500 mg tablet,extended 500 mg PO DAILY 01/21/25 02/09/25 History release 24 hr pravastatin 10 mg tablet 10 mg PO DAILY 01/21/25 02/09/25 History vitamin E (dl, acetate) 180 mg 180 mg PO DAILY 02/07/25 02/09/25 History (400 unit) capsule Allergy/AdvReac Type Severity Reaction Status Date / Time trazodone AdvReac OTHER Verified 02/10/25 12:00 Family History Mother Arthritis Hypertension HLD (hyperlipidemia) TIA (transient ischemic attack) Father Heart disease Hypertension HLD (hyperlipidemia) Surgical History History of cardiac catheterization History of partial hysterectomy History of cholecystectomy Social History Smoking Status: Current every day smoker tobacco type: cigarettes alcohol intake: never substance use type: marijuana ROS Constitutional Constitutional: Denies fatigue, fever(s), poor appetite, weight gain or weight loss Gastrointestinal Gastrointestinal: Denies belching, bloating, change in bowel habits, change in stool character, chewing difficulty, coffee ground emesis, constipation, cramping, diarrhea, dyspepsia, dysphagia, early satiety, excessive flatus, fecal incontinence, heartburn, hematemesis, hematochezia, hemorrhoids, loose stools, melena, nausea, odynophagia, rectal bleeding, tenesmus, vomiting or weight changes Vital Signs Vital Signs Vital Signs: 02/10/25 12:02 02/10/25 12:02 Temperature 97.3 F L Temperature Source Temporal Pulse Rate 85 Respiratory Rate 18 Respiratory Pattern Normal Blood Pressure 135/83 H Blood Pressure Mean 100 Blood Pressure Source Monitor Blood Pressure Position Semi-Fowlers Blood Pressure Location Left Arm Pulse Ox 97 Oxygen Delivery Method Room Air Weight Weight: 231 lb 7.766 oz Body Mass Index (BMI) 39.7 Physical Exam Const alert, oriented x3, no apparent distress and healthy appearing General Appearance: cooperative GI normal to inspection, nondistended, normoactive bowel sounds, soft to palpation, non-tender and non-distended Percussion: normal to percussion Rectal Exam: deferred Results Lab / Micro Data 02/10/25 11:32 02/10/25 11:32 Labs: Laboratory Results - last 24 hr 02/10/25 11:32: WBC 6.4, RBC 4.21, Hgb 12.6, Hct 39.7, MCV 94.3, MCH 29.9, MCHC 31.7 L, RDW Std Deviation 51.5 H, RDW Coeff of Mckenzie 14.6, Plt Count 226, MPV 10.2, Immature Gran % (Auto) 0.500, Neut % (Auto) 68.9, Lymph % (Auto) 20.3, [place] % (Auto) 6.0, Eos % (Auto) 3.8, Baso % (Auto) 0.5, Absolute Neuts (auto) 4.4, Absolute Lymphs (auto) 1.29, Nucleated RBC % 0 Assessment & Plan Assessment/Plan (1) KEENAN (nonalcoholic steatohepatitis): (2) Gastroparesis: (3) Acid reflux: QUALIFIERS: Esophagitis presence: esophagitis presence not specified Qualified Code(s): K21.9 - Gastro-esophageal reflux disease without esophagitis (4) Stratton esophagus: QUALIFIERS: Stratton's esophagus type: without dysplasia Qualified Code(s): K22.70 - Stratton's esophagus without dysplasia PLAN: Assessment and Plan Assessment and Plan (1) Fatty liver: Status: Acute (2) Gastroparesis: Status: Acute (3) Acid reflux: Status: Acute Qualifiers: Esophagitis presence: esophagitis presence not specified Qualified Code(s): K21.9 - Gastro-esophageal reflux disease without esophagitis (4) Stratton esophagus: Status: Chronic Qualifiers: Stratton's esophagus type: without dysplasia Qualified Code(s): K22.70 - Stratton's esophagus without dysplasia Orders: Orders ABD Limited w/ Elastography Today K76.0 - Fatty (change of) liver, not elsewhere classified Medications: New pantoprazole 20 mg PO QDAY 30 tabs 2RF famotidine 20 mg PO QHS 30 tabs 2RF Plan NICO VITAL, is a 59 F who presents to the office today for FU and review of testing results. Abdominal CT normal except for large amounts of stool presence in large bowel. Did not recommend increased fiber intake at this time d/t GET results of 97.49 minutes, she is newly diagnosed w/DM2 which could possibly be delaying gastric emptying. Discussed care plan in detail with her: recommend low FODMAP and gastroparesis diet, HOLD metoclopramide OTC Super Greens PO daily for digestive/ motility support Ltd abd US w/elastography for suspected fatty liver on CT pantoprazole 20mg PO QAM, 30min before eating famotidine 20mg PO QHS EGD for chronic reflux/heartburn, h/o BE office FU 2wks post scope
[2025-02-10 12:25] LABS: Bedside Glucose 156 mg/dL (74-106)
--- NOTE | 2025-02-10 12:30 | EGD_PTH ---
PATIENT: NICO VITAL LOC: EN U#:[id number] AGE/SX: 59/F ROOM: RE02/10/[address]: Dr. Ander Mccloud DO : 1965 BED: DIS: 02/10/2025 SPEC #: [id number] RECD: 02/11/25 12:58 STATUS: PAXTON REJonathan #: [id number] ELOISA: 02/10/25 12:[address]: Ander Mccloud DEPT: SURGICAL PATHOLOGY RECD BY: Ángel Moreno ENTERED: 02/11/25 12:58 SP TYPE: EGD BIOPSY JARVIS DR: Meg Zapata, IAP DISPLAYS ANALYST-C BG MorrisC Tissues: A - Gastric mucous membrane B - Esophagus, NOS Procedures: Immunohistochemical Stains Surgery Specimen Level IV HEADER OPERATION: EGD PRE-OP DIAGNOSIS: Nonalcoholic steatohepatitis, gastroparesis, acid reflux, Stratton esophagus TISSUE SUBMITTED: A- Gastric body biopsy, B- Distal esophagus biopsy MICROSCOPIC DIAGNOSIS A. Stomach, body, biopsy: * Active chronic gastritis with intestinal metaplasia. * Negative for dysplasia. * IHC negative for H pylori organisms - see note. Note: The histology is suggestive of Helicobacter gastritis. If clinical suspicion remains high suggest obtaining alternative testing for Helicobacter organisms. B. Distal esophagus, Stratton esophagus, biopsy: * Columnar mucosa negative for goblet cell metaplasia. * Negative for dysplasia. * No squamous mucosa seen. MICROSCOPIC DESCRIPTION Slides are reviewed. All matched controls reacted appropriately. These tests were developed and their performance characteristics determined by [facility]. They may not have been cleared or approved by the U.S. Food and Drug Administration. The FDA has determined that such clearance or approval is not necessary. The above immunohistochemical/dualISH markers are ordered and reviewed by the Pathologist. GROSS DESCRIPTION A. Received in formalin in a container labeled with the patient's name, date of , and gastric body biopsy are 2 holbrook-pink fragments of mucosal tissue, each measuring 0.3 x 0.3 x 0.3 cm. Submitted in toto in A1. B. Received in formalin in a container labeled with the patient's name, date of , and distal esophagus biopsy is a 0.4 x 0.3 x 0.3 cm fragment of holbrook-pink mucosal tissue. Submitted in toto in B1. [facility] 02-11-2025 CPT:17027z5,93389
[2025-02-10 12:35] LABS: ALB/GLOB Ratio 1.2 RATIO (0.9-2.4); AST(SGOT) 27 U/L (<=31); Alanine Aminotransfer ALT/SGPT 28 U/L (<=34); Alkaline Phosphatase 120 U/L (35-104); Anion Gap 15 (5-15); BUN 10 mg/dL (4-19); BUN/Creat Ratio 10.1 RATIO (10-20); Calcium,Total 9.8 mg/dL (7.6-11.0); Carbon Dioxide 20.9 mmol/L (21.0-32.0); Chloride 105 mmol/L (98-108); Creatinine, Serum 0.98 mg/dL (0.70-1.20); EST Glomerular Filtration Rate 67 (>60); Estimated Creatinine Clearance 74.81 ml/min (50-250); Globulin 3.3 g/dL (2.2-4.2); Glucose 150 mg/dL (70-99); Hepatitis B Surface Antigen Nonreactive (Nonreactive); Hepatitis C Antibody Nonreactive (Nonreactive); Potassium 4.2 mmol/L (3.3-5.1); Protein, Total 7.2 g/dL (5.9-8.4); Sodium Level 140 mmol/L (133-145); Total Bilirubin 0.35 mg/dL (0.00-1.30)
--- NOTE | 2025-02-10 12:51 | PCM.PRE.AN2 ---
ASA Classification* ASA Classification ASA Classification: 3 Assessment & Plan Anesthesia* Anesthesia Assessment Anesthesia Assessment: Discussed sedation and/or anesthesia options, risks, benefits, and alternatives with patient/parents/legal guardian/POA. Questions invited. The patient/parents/legal guardian/POA seems to understand and agrees to proceed with anesthesia plan. Reviewed the physical assessment, medical history, allergy history and patient home medications list prior to surgery/procedure/anesthetic and documented any changes. Performed airway and anesthesia risk assessments. Anesthesia Type Anesthesia Type: MAC History Source History Obtained from:: Patient and Chart Anesthesia Focused Assessment* Temperature: 97.3 F Pulse Rate: 85 Blood Pressure: 135/83 Respiratory Rate: 18 Pulse Ox: 97 Oxygen Delivery Method: Room Air Airway Assessment Mouth opens: >3 cm Mallampati Score: IV Teeth Condition: Caps/Crowns (Patient has a couple crowns. They are tight.) and Missing (Missing molar left lower. Rest of the teeth are tight.) Neck Range of motion (ROM): Full ROM Focused Labs Anesthesia Preop lab: CBC WBC 6.4 K/mm3 (4.4-11.0) 02/10/25 11:02/10/25 RBC 4.21 M/mm3 (4.2-5.4) 02/10/25 11:02/10/25 Hgb 12.6 g/dL (12.0-15.0) 02/10/25 11:02/10/25 Hct 39.7 % (37-47) 02/10/25 11:02/10/25 Plt Count 226 K/mm3 (150-450) 02/10/25 11:02/10/25 CHEMISTRY Potassium 4.2 mmol/L (3.3-5.1) 02/10/25 11:32 02/10/25 Sodium 140 mmol/L (133-145) 02/10/25 11:02/10/25 Magnesium 2.4 mg/dL (1.6-2.6) 10/08/24 06:05 10/08/24 Phosphorus 3.8 mg/dL (2.5-4.9) 10/08/24 06:05 10/08/24 BUN 10 mg/dL (4-19) 02/10/25 11:02/10/25 Creatinine 0.98 mg/dL (0.70-1.20) 02/10/25 11:32 02/10/25 Glucose 150 mg/dL (70-99) H 02/10/25 11:32 02/10/25 POC Glucose 156 mg/dL (74-106) H 02/10/25 11:55 02/10/25 TSH 19.500 uIU/mL (0.358-3.740) H 10/08/24 06:05 10/08/24 COAG PT 12.9 SECONDS (11.7-14.9) 01/24/25 08:59 01/24/25 Lab additional comments: Patient had a repeat TSH in December 07, 2024 was 3.55. 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 When Was Last Pacemaker Check QUESTION #4 FULL TEXT: You/Your Family Experience fever (hyperthermia) with Anesthesia Last Oral Intake Last Oral intake: Last Oral Intake NPO since :02/10/25 12:02 Meds taken in AM with sips of water? Meds patient instructed to take am of surgery Any additional information?: Yes Meds taken in AM with sips of water?: Yes PONV PONV - farm equipment service technician: PONV - farm equipment service technician Female Yes 02/07/25 14:04 HX of Motion Sickness No 02/07/25 14:04 HX of N/V After Surgery No 02/07/25 14:04 Non-Smoker No 02/07/25 14:04 Duration of Surgery greater No 02/07/25 14:04 than 60 minutes Number of Risk Factors 1 02/07/25 14:04 PONV Score Low Risk 03/31/25 14:04 Height & Weight Height & Weight: Anesthesia: Height & Weight Height 5 ft 4 in 02/10/25 12:02 Weight: 105 kg 02/10/25 12:02 Body Mass Index (BMI) 39.7 02/10/25 12:02 Respiratory Assessment Respiratory Assessment - farm equipment service technician: Respiratory Tract Infection Hx - farm equipment service technician Hx Respiratory Tract Infection No 02/07/25 14:04 Any additional information?: Yes Hx Respiratory Tract Infection: Yes (Patient has had chronic cough since September 2024.) STOP Sleep Apnea STOP Sleep Apnea - farm equipment service technician: STOP Sleep Apnea - farm equipment service technician Hx Hypertension No 02/07/25 14:04 Hx Sleep Apnea Yes 02/07/25 14:04 CPAP Yes 02/07/25 14:04 BIPAP No 02/07/25 14:04 Do you snore loudly (louder than talking or can be heard Do you often feel tired/ fatigued/ sleepy during daytime? Has anyone observed you stop breathing during sleep? STOP Results Positive 02/07/25 14:04 QUESTION #5 FULL TEXT : Do you snore loudly (louder than talking or can be heard through closed doors)? Tobacco Use History Tobacco Use History - farm equipment service technician: Tobacco Use History - farm equipment service technician Tobacco Use Smoking Status Current every day smoker 02/07/25 14:04 Hx Tobacco Use Yes 02/07/25 14:04 Years Smoking Packs Smoked per Day Smoking Cessation Date was within the last 15 years Hx Smoking Cessation Date Hx Smoking Cessation Counseling Any additional information?: Yes Smoking Status: Current every day smoker (Patient smoked today.) Hematologic Medial History Hematologic Hx - farm equipment service technician: Hematologic Medical Hx - machine tender Hx of Blood Transfusion No 02/07/25 14:04 Hx of Transfusion in last 3 No 02/07/25 14:04 Months Date of Last Transfusion (if within last 3 months) Ever experience any problems No 02/07/25 14:04 with transfusion(s)? Specify any problems Hx of Preganancy in last 3 No 02/07/25 14:04 Months Nurse Filling Out Transfusion [facility] 02/07/25 14:04 & Questions: Date: 02/07/25 02/07/25 14:04 Time: 14:17 02/07/25 14:04 Patient unable to answer at this time (ie. confused, unrespo /Reproduction History /Reproductive History - farm equipment service technician: /Reproductive Hx- farm equipment service technician Hx Now No 02/07/25 14:04 Gestational Age (in weeks): EDC: Hx Hx Para Hx Section SAB No 02/07/25 14:04 PFS Medical History Wears glasses Cancer Anxiety Thyroid disease Diabetes Ambulates with cane Anemia Hepatitis High cholesterol Migraine headache Difficulty swallowing Heartburn Gastric reflux Smoker CPAP (continuous positive airway pressure) dependence Sleep apnea Asthma Shortness of breath on exertion Hoarseness Chronic cough Leg cramps History of echocardiogram History of stress test Cardiology follow-up encounter Mycoplasma pneumonia Controlled type 2 diabetes mellitus TIA (transient ischemic attack) CHINO (obstructive sleep apnea) Depression Cardiac microvascular disease CAD (coronary artery disease) Arthritis Lyme disease Sjogren syndrome with other organ involvement Hypothyroid Home Medications ?Medication ?Instructions ?Recorded ?Last Taken ?Type gabapentin 300 mg capsule 300 mg PO BID 08/18/24 02/09/25 History levothyroxine 200 mcg tablet 200 mcg PO DAILY 10/07/24 02/10/25 History metoclopramide HCl 5 mg tablet 5 mg PO QAC #90 tabs 10/11/24 Unknown Rx (Reglan) bupropion HCl 150 mg tablet,12 hr 150 mg PO DAILY 12/17/24 02/09/25 History sustained-release (Wellbutrin SR) famotidine 20 mg tablet 20 mg PO QHS #30 tabs 12/17/24 02/09/25 Rx pantoprazole 20 mg tablet,delayed 20 mg PO QDAY #30 tabs 12/17/24 02/10/25 Rx release ranolazine 500 mg tablet,extended 1,000 mg PO BID 12/17/24 02/09/25 History release,12 hr metformin 500 mg tablet,extended 500 mg PO DAILY 01/21/25 02/09/25 History release 24 hr pravastatin 10 mg tablet 10 mg PO DAILY 01/21/25 02/09/25 History vitamin E (dl, acetate) 180 mg 180 mg PO DAILY 02/07/25 02/09/25 History (400 unit) capsule Allergy/AdvReac Type Severity Reaction Status Date / Time trazodone AdvReac OTHER Verified 02/10/25 12:00 Family History Mother Arthritis Hypertension HLD (hyperlipidemia) TIA (transient ischemic attack) Father Heart disease Hypertension HLD (hyperlipidemia) Surgical History History of cardiac catheterization History of partial hysterectomy History of cholecystectomy Social History Smoking Status: Current every day smoker (Patient smoked today.) tobacco type: cigarettes alcohol intake: never substance use type: marijuana Review of Systems (Anesthesia) ROS Narrative System reviewed and no additional complaints, except as documented.
--- NOTE | 2025-02-10 13:44 | PCM.POST.ANE ---
Anesthesia: Postop Eval I Current Vital Signs Temperature: 98.4 F Pulse Rate: 84 Blood Pressure: 104/75 Respiratory Rate: 18 Pulse Ox: 95 Oxygen Delivery Method: Room Air Assessment Airway patent: Yes Spontaneous unlabored respirations: Yes Mental status: Asleep nausea: No Vomiting: No Anesthesia Complication: No Fluid Hydration Crystalloid volume administer (ml): 30 Total IV fluid infused: 30 Progress Note Anesthesia document: Postop Eval 1 completed: Yes
--- NOTE | 2025-02-10 14:06 | PCM.POSTANE2 ---
Anesthesia Postop Eval I Sum Postop Eval Completion status Anesthesia document: Postop Eval 1 completed: Yes Anesthesia Postop Eval I Summary Anesthesia Postop Eval I Summary: Anesthesia Postop Eval I: Assessment Summary Airway patent Yes 02/10/25 13:56 [email or web address] Spontaneous unlabored Yes 02/10/25 13:56 [email or web address] respirations Mental status Asleep 02/10/25 13:56 [email or web address] nausea No 02/10/25 13:56 [email or web address] Vomiting No 02/10/25 13:56 [email or web address] Anesthesia Postop Eval I: Fluid Summary Crystalloid volume administer 30 02/10/25 13:56 [email or web address] (ml) Colloids volume administered ( ml) Blood Product volume administered (ml) Total IV fluid infused 30 02/10/25 13:56 [email or web address] Anesthesia Postop Eval I: Summary Notes Anesthesia Complication No 02/10/25 13:56 [email or web address] Anesthesia Complication Comment: Post-operative progress note Anesthesia: Postop Eval II Evaluation Mental status: Awake and Calm Pain Level: 0 nausea: No Vomiting: No Complications Anesthesia Complication: No
[2025-02-10 16:43] LABS: Hepatitis B Surface Antibody Nonreactive
--- NOTE | 2025-02-10 18:59 | OP.CCLET_ITS ---
02/10/2025 Daniella Gomez Re : Upper GI endoscopy procedure for Rubina Greenberg Dear Benny This procedure was performed on February. My impressions and recommendations are as follows: Impressions : - Tortuous esophagus. - Large hiatal hernia. - Oozing gastric ulcer with a visible vessel. Treated with a heater probe. - Gastric antral vascular ectasia without bleeding. Treated with a heater probe. - Non-bleeding gastric ulcers with no stigmata of bleeding. Biopsied. Recommendations : - Discharge home. - Clear liquid diet today. - Use Protonix (pantoprazole) 40 mg PO BID. - Continue present medications. My findings are described in the full procedure note, which is enclosed. If I can be of further assistance, please feel free to contact me at . Sincerely, Ander Mccloud, 02/10/2025 6:58:42 PM This report has been signed electronically.
--- NOTE | 2025-02-10 18:59 | OP.EGD_ITS ---
Patient Name: Rubina Greenberg Procedure Date: 02/10/2025 1:19 PM Date of : 1965 Age: 59 Procedure: Upper GI endoscopy Indications: Iron deficiency anemia Providers: Ander Mccloud DO Referring MD: Daniella Gomez Medicines: Monitored Anesthesia Care Patient Profile: This is a 59 year old female. Refer to note in patient chart for documentation of history and physical. Patient has symptoms. Complications: No immediate complications. Procedure: Pre-Anesthesia Assessment: - Prior to the procedure, a History and Physical was performed, and patient medications and allergies were reviewed. The patient is competent. The risks and benefits of the procedure and the sedation options and risks were discussed with the patient. All questions were answered and informed consent was obtained. Patient identification and proposed procedure were verified by the nurse in the pre-procedure area. Mental Status Examination: alert and oriented. Airway Examination: normal oropharyngeal airway and neck mobility. Respiratory Examination: clear to auscultation. CV Examination: normal. Prophylactic Antibiotics: The patient does not require prophylactic antibiotics. Prior Anticoagulants: The patient has taken no anticoagulant or antiplatelet agents except for NSAID medication. ASA Grade Assessment: II - A patient with mild systemic disease. After reviewing the risks and benefits, the patient was deemed in satisfactory condition to undergo the procedure. The anesthesia plan was to use monitored anesthesia care (MAC). Immediately prior to administration of medications, the patient was re-assessed for adequacy to receive sedatives. The heart rate, respiratory rate, oxygen saturations, blood pressure, adequacy of pulmonary ventilation, and response to care were monitored throughout the procedure. The physical status of the patient was re-assessed after the procedure. After obtaining informed consent, the endoscope was passed under direct vision. Throughout the procedure, the patient's blood pressure, pulse, and oxygen saturations were monitored continuously. The gastroscope was introduced through the mouth, and advanced to the third part of the duodenum. Small bowel enteroscopy was deemed necessary. The upper GI endoscopy was accomplished without difficulty. The patient tolerated the procedure well. Findings: The examined esophagus was significantly tortuous. A large hiatal hernia was present. Diffuse mildly erythematous mucosa without bleeding was found in the gastric body. Biopsies were taken with a cold forceps for histology. Biopsies were taken with a cold forceps for Helicobacter pylori testing. Verification of patient identification for the specimen was done. Estimated blood loss was minimal. No gross lesions were noted in the second portion of the duodenum. Impression: - Tortuous esophagus. - Large hiatal hernia. - Oozing gastric ulcer with a visible vessel. Treated with a heater probe. - Gastric antral vascular ectasia without bleeding. Treated with a heater probe. - Non-bleeding gastric ulcers with no stigmata of bleeding. Biopsied. Recommendation: - Discharge home. - Clear liquid diet today. - Use Protonix (pantoprazole) 40 mg PO BID. - Continue present medications. Procedure Code(s): --- Professional --- 63101, Small intestinal endoscopy, enteroscopy beyond second portion of duodenum, not including ileum; with biopsy, single or multiple CPT copyright 2021 [employer]. All rights reserved. The codes documented in this report are preliminary and upon pain management physician review may be revised to meet current compliance requirements. Ander Mccloud DO 02/10/2025 6:58:42 PM This report has been signed electronically. Number of Addenda: 0 Note Initiated On: 02/10/2025 1:19 PM
[2025-02-11 06:08] LABS: Hepatitis A AB, Total Positive (Negative); Hepatitis B Core Ab Total Negative (Negative)
[2025-02-11 17:07] LABS: Anti-Mitochondrial AB <20.0 Units (0.0-20.0)
[2025-02-12 06:08] LABS: Hepatitis A IgM Antibody Negative (Negative)
== END 2025-02-10 14:32 | disposition home or self-care (01) ==
LOC: EN 11:18 → AC 11:20
PROVIDERS: PCP Nurse Practitioner Family; Referring Provider Nurse Practitioner Family; Visit Provider Internal Medicine Gastroenterology
PROC: 0DJ08ZZ Inspection of Upper Intestinal Tract, Via Natural or Artificial Opening Endoscopic (ICD-10-PCS; CPT 43235; principal; 2025-02-10 12:25)
DX: K25.4 Chronic or unspecified gastric ulcer with hemorrhage (principal); E11.43 Type 2 diabetes mellitus with diabetic autonomic (poly)neuropathy; K31.A12 Gastric intestinal metaplasia without dysplasia, involving the body (corpus); K29.50 Unspecified chronic gastritis without bleeding; I25.10 Atherosclerotic heart disease of native coronary artery without angina pectoris; K31.819 Angiodysplasia of stomach and duodenum without bleeding; K22.70 Barrett's esophagus without dysplasia; D50.9 Iron deficiency anemia, unspecified; K75.81 Nonalcoholic steatohepatitis (NASH); K31.84 Gastroparesis; K44.9 Diaphragmatic hernia without obstruction or gangrene; E78.00 Pure hypercholesterolemia, unspecified; E03.9 Hypothyroidism, unspecified; F17.210 Nicotine dependence, cigarettes, uncomplicated; Z79.84 Long term (current) use of oral hypoglycemic drugs; Z79.890 Hormone replacement therapy; Z79.899 Other long term (current) drug therapy
CPT/HCPCS: 44361; 44366; 36415; 80053; 82962; 83516; 85025; 86704; 86706; 86708; 86709; 86803; 87340; 88305; 88342; A4216; J2405

== ENCOUNTER → 2025-06-15 | Outpatient (CLI) | payer MEDICAID, SELFPAY ==
[2025-06-15 09:20] LABS: Hematocrit 37.1 % (37-47); Hemoglobin 12.0 g/dL (12.0-15.0); Immature Granulocytes Count 0.010 X10^3/uL (0.0-0.0); Mean Corp Hgb Conc 32.3 g/dL (32-36); Mean Corpuscular Volume 95.4 fL (81-99); Mean Platelet Vol. 10.1 fl (6.2-12.0); NRBC Flagged by Analyzer 0 % (0-5); Platelet Count 202 K/mm3 (150-450); RBC Distribution Width CV 15.8 % (11.6-14.6); RBC Distribution Width SD 55.5 fl (35.1-43.9); Red Blood Count 3.89 M/mm3 (4.2-5.4); White Blood Count 6.6 K/mm3 (4.4-11.0)
[2025-06-15 09:39] LABS: Prothrombin Time (Protime)PT. 13.1 SECONDS (11.7-14.9)
[2025-06-15 09:54] LABS: AST(SGOT) 17 U/L (<=31); Alanine Aminotransfer ALT/SGPT 17 U/L (<=34); Albumin, Serum 4.1 g/dL (3.5-5.0); Alkaline Phosphatase 122 U/L (35-104); Anion Gap 13 (5-15); BUN 10 mg/dL (4-19); BUN/Creat Ratio 13.2 RATIO (10-20); CRP 4.70 mg/L (0.0-3.0); Calcium,Total 9.6 mg/dL (7.6-11.0); Carbon Dioxide 23.7 mmol/L (21.0-32.0); Chloride 102 mmol/L (98-108); Cholesterol 153 mg/dL (<=200); Globulin 3.2 g/dL (2.2-4.2); Glucose 128 mg/dL (70-99); Low Density Lipoprotein Calc. 83 mg/dL; Potassium 4.6 mmol/L (3.3-5.1); Triglycerides 166 mg/dL; Very Low Density Lipoprotein 33 mg/dL (5-40); cholesterol:hdl ratio screen 4.20
[2025-06-16 13:08] LABS: ANTINUCLEAR ANTIBODIES DIRECT Negative (Negative)
[2025-06-16 16:09] LABS: Anti-Smooth Muscle ABS 2 Units (0-19)
== END | disposition home or self-care (01) ==
LOC: LAB 08:45
PROVIDERS: PCP Nurse Practitioner Family; Referring Provider Internal Medicine; Visit Provider Internal Medicine
DX: K75.81 Nonalcoholic steatohepatitis (NASH) (principal); E11.9 Type 2 diabetes mellitus without complications; K25.9 Gastric ulcer, unspecified as acute or chronic, without hemorrhage or perforation; K44.9 Diaphragmatic hernia without obstruction or gangrene; K22.70 Barrett's esophagus without dysplasia; K21.9 Gastro-esophageal reflux disease without esophagitis
CPT/HCPCS: 86225; 36415; 80053; 80061; 83036; 83516; 85025; 85610; 86038; 86140

== ENCOUNTER 2025-07-01 07:55 | Day surgery (SDC) | payer MEDICAID, SELFPAY ==
[2025-07-01] MEDS: Lidocaine Jelly 2% 20 ML Syringe (URO-JET) 1 APPLIC (08:15)
[2025-07-01 09:00] VITALS: BP 173/68; PULSE 87; TEMP 36.1; O2SAT 98
== END 2025-07-01 08:45 | disposition home or self-care (01) ==
PROVIDERS: PCP Nurse Practitioner Family; Referring Provider Nurse Practitioner Family; Visit Provider Internal Medicine Gastroenterology
PROC: F00ZJWZ Instrumental Swallowing and Oral Function Assessment using Swallowing Equipment (ICD-10-PCS; CPT 43235; principal; 2025-07-01 07:55)
DX: R13.10 Dysphagia, unspecified (principal); E11.43 Type 2 diabetes mellitus with diabetic autonomic (poly)neuropathy; K44.9 Diaphragmatic hernia without obstruction or gangrene; K31.84 Gastroparesis; K75.81 Nonalcoholic steatohepatitis (NASH)
CPT/HCPCS: 91010; 91013

== ENCOUNTER → 2025-07-08 | Outpatient (CLI) | payer MEDICAID, SELFPAY ==
--- NOTE | 2025-07-08 08:13 | CT_ITS ---
PROCEDURE: ABDOMEN/PELVIS WITH CONTRAST 07/08/2025 REASON FOR EXAM: HIATAL HERNIA TECHNIQUE: Procedure Code: [id number] Modality: CT Procedure: ABDOMEN/PELVIS WITH CONTRAST Coronal and Sagittal reconstruction series were provided. CONTRAST: Isovue 370 VOLUME: 100 mL One or more dose reduction techniques were used (e.g., Automated exposure control, adjustment of the mA and/or kV according to patient size, use of iterative reconstruction technique. RADIATION DOSE SUMMARY: CTDlvol: 14.6 mGy DLP: 1176.41 mGycm COMPARISON: Prior study dated September 08, 2024. FINDINGS: Lung bases: Lung bases are clear. Liver: Diffuse fatty infiltration. Borderline hepatomegaly. Gallbladder: Surgically absent. Spleen: Normal size. Pancreas: Normal size without evidence of mass surrounding inflammation or ductal dilation. Adrenals: Unremarkable Kidneys: Unremarkable Bladder: The urinary bladder is empty. Reproductive Organs: Prior hysterectomy. Adnexal regions are unremarkable. There is a 15.6 mm follicle in the left ovary. Bowel: There is thickening of the sigmoid colon. Mild colitis should be ruled out. Appendix: The appendix is not identified. There is no inflammatory process identified in the right lower quadrant to suggest appendicitis. Lymph nodes: No suspicious lymph node enlargement. Small less than 1 cm lymph nodes are seen. Small benign-appearing bilateral inguinal lymph nodes. Vasculature: Mild diffuse atherosclerotic calcifications are noted. Peritoneum / Retroperitoneum: Unremarkable Bones: Degenerative changes of the spine. CT/Abdomen/Pelvis WITH Contrast IMPRESSION: No evidence of hiatal hernia. Diffuse fatty infiltration of the liver. Borderline hepatomegaly. Reading Location: [facility]
== END | disposition home or self-care (01) ==
LOC: CT 08:13
PROVIDERS: PCP Nurse Practitioner Family; Referring Provider Surgery; Visit Provider Surgery
DX: K44.9 Diaphragmatic hernia without obstruction or gangrene (principal)
CPT/HCPCS: 74177; Q9967

== ENCOUNTER 2025-07-27 08:35 | Day surgery (SDC) | payer MEDICAID, SELFPAY ==
--- NOTE | 2025-07-22 14:14 | PAT.ANE_ITS ---
Pre-Assessment Diagnosis/Proposed Procedure Planned Operative Procedure(s): EGD Anesthesia History Anesthesia History - assistant product manager: Anesthesia History - assistant product manager Hx Hospitalization Yes: 09/2024 PNEUMONIA 07/22/25 13:00 Any Problems With Anesthesia No 07/22/25 13:00 Cholinesterase deficiency No 07/22/25 13:00 You/Your Family Experience No 07/22/25 13:00 fever (hyperthermia) with Relationship Recent Exposure to Contagious No 02/10/25 12:02 Disease Does patient have nerve No 07/22/25 13:00 stimulator Patient instructed to have device shut off --Does patient have Pacemaker or ICD? When Was Last Pacemaker Check QUESTION #4 FULL TEXT: You/Your Family Experience fever (hyperthermia) with Anesthesia Last Oral Intake Last Oral intake: Last Oral Intake NPO since Meds taken in AM with sips of water? Meds patient instructed to take am of surgery PONV PONV - assistant product manager: PONV - assistant product manager Female Yes 07/22/25 13:00 HX of Motion Sickness No 07/22/25 13:00 HX of N/V After Surgery No 07/22/25 13:00 Non-Smoker No 07/22/25 13:00 Duration of Surgery greater No 07/22/25 13:00 than 60 minutes Number of Risk Factors 1 07/22/25 13:00 PONV Score Low Risk 07/22/25 13:00 Height & Weight Height & Weight: Anesthesia: Height & Weight Height 5 ft 4 in 06/15/25 07:57 Respiratory Assessment Respiratory Assessment - assistant product manager: Respiratory Tract Infection Hx - assistant product manager Hx Respiratory Tract Infection No 07/22/25 13:00 STOP Sleep Apnea STOP Sleep Apnea - assistant product manager: STOP Sleep Apnea - assistant product manager Hx Hypertension Yes 07/22/25 13:00 Hx Sleep Apnea Yes 07/22/25 13:00 CPAP Yes 07/22/25 13:00 BIPAP No 07/22/25 13:00 Do you snore loudly (louder than talking or can be heard Do you often feel tired/ fatigued/ sleepy during daytime? Has anyone observed you stop breathing during sleep? STOP Results Positive 07/22/25 13:00 QUESTION #5 FULL TEXT : Do you snore loudly (louder than talking or can be heard through closed doors)? Tobacco Use History Tobacco Use History - assistant product manager: Tobacco Use History - assistant product manager Tobacco Use Smoking Status Current every day smoker 07/22/25 13:00 Hx Tobacco Use Yes 07/22/25 13:00 Years Smoking Packs Smoked per Day Smoking Cessation Date was within the last 15 years Hx Smoking Cessation Date Hx Smoking Cessation Counseling Hematologic Medial History Hematologic Hx - assistant product manager: Hematologic Medical Hx - lacquer coater Hx of Blood Transfusion No 07/22/25 13:00 Hx of Transfusion in last 3 No 07/22/25 13:00 Months Date of Last Transfusion (if within last 3 months) Ever experience any problems No 07/22/25 13:00 with transfusion(s)? Specify any problems Hx of Preganancy in last 3 No 07/22/25 13:00 Months Nurse Filling Out Transfusion [facility]GRADHA 07/22/25 13:00 & Questions: Date: 07/22/25 07/22/25 13:00 Time: 13:02 07/22/25 13:00 Patient unable to answer at this time (ie. confused, unrespo /Reproduction History /Reproductive History - assistant product manager: /Reproductive Hx- assistant product manager Hx Now No 07/22/25 13:00 Gestational Age (in weeks): EDC: Hx Hx Para Hx Section SAB No 07/22/25 13:00 [facility] Medical History (Updated 07/22/25 @ 13:12 by Larissa Monteiro) Non-alcoholic cirrhosis History of ulceration Wears glasses Cancer Anxiety Thyroid disease Diabetes Ambulates with cane Anemia Hepatitis High cholesterol Migraine headache Difficulty swallowing Heartburn Gastric reflux Smoker CPAP (continuous positive airway pressure) dependence Sleep apnea Asthma Shortness of breath on exertion Hoarseness Chronic cough Leg cramps History of echocardiogram History of stress test Cardiology follow-up encounter Mycoplasma pneumonia Controlled type 2 diabetes mellitus TIA (transient ischemic attack) CHINO (obstructive sleep apnea) Depression Cardiac microvascular disease CAD (coronary artery disease) Arthritis Lyme disease Sjogren syndrome with other organ involvement Hypothyroid Home Medications ?Medication ?Instructions ?Recorded ?Last Taken ?Type gabapentin 300 mg capsule 300 mg PO BID 08/18/2402/09 History levothyroxine 200 mcg tablet 200 mcg PO DAILY 10/07/24 02/10/25 History metoclopramide HCl 5 mg tablet 5 mg PO QAC #90 tabs Unknown Rx (Reglan) bupropion HCl 150 mg tablet,12 hr 150 mg PO DAILY 06/0302/09/25 History sustained-release (Wellbutrin SR) ranolazine 500 mg tablet,extended 1,000 mg PO BID 06/0302/09/25 History release,12 hr metformin 500 mg tablet,extended 500 mg PO DAILY 01/2102/09/25 History release 24 hr vitamin E (dl, acetate) 180 mg 180 mg PO DAILY 5 02/09/25 History (400 unit) capsule colestipol 1 gram tablet 1 g PO QDAY bile reflux sonny ritis 02/22/25 Unknown Rx #30 tabs pravastatin 40 mg tablet 40 mg PO QHS 1 month #30 tab s 03/09/25 Unknown Rx Allergy/AdvReac Type Severity Reaction Status Date / Time trazodone AdvReac OTHER Verified 07/22/25 12:56 Family History Mother Arthritis Hypertension HLD (hyperlipidemia) TIA (transient ischemic attack) Father Heart disease Hypertension HLD (hyperlipidemia) Surgical History (Updated 07/22/25 @ 13:00 by Larissa Monteiro) History of esophagogastroduodenoscopy (EGD) History of cardiac catheterization History of partial hysterectomy History of cholecystectomy Social History Smoking Status: Current every day smoker tobacco type: cigarettes alcohol intake: never substance use type: does not use Recommendation Anesthesia Recommendation Anesthesia recommendation: OPTIMIZED for anesthesia
[2025-07-27] VITALS (9 sets, daily range): BP systolic 93–147; BP diastolic 59–86; PULSE 73–82; RESP 16; TEMP 36.2–36.5; O2SAT 94–97; BMI 40.8
[2025-07-27] MEDS: Lactated Ringers 1,000 ML 15 ML IV (09:10)
--- NOTE | 2025-07-27 09:24 | PRE.ANES_ITS ---
ASA Classification* ASA Classification ASA Classification: 3 Assessment & Plan Anesthesia* Anesthesia Assessment Anesthesia Assessment: Discussed sedation and/or anesthesia options, risks, benefits, and alternatives with patient/parents/legal guardian/POA. Questions invited. The patient/parents/legal guardian/POA seems to understand and agrees to proceed with anesthesia plan. Reviewed the physical assessment, medical history, allergy history and patient home medications list prior to surgery/procedure/anesthetic and documented any changes. Performed airway and anesthesia risk assessments. Anesthesia Type Anesthesia Type: MAC History Source History Obtained from:: Patient and Chart Anesthesia Focused Assessment* Temperature: 97.7 F Pulse Rate: 82 Blood Pressure: 147/86 Respiratory Rate: 16 Pulse Ox: 97 Oxygen Delivery Method: Room Air Airway Assessment Mouth opens: >3 cm Mallampati Score: II Teeth Condition: Caps/Crowns Neck Range of motion (ROM): Full ROM Labs Anesthesia Preop lab: CBC WBC, (4.4-11.0) 6.6 K/mm3 06/15/25, 08:47 RBC, (4.2-5.4) 3.89 M/mm3 L 06/15/25, 08:47 Hgb, (12.0-15.0) 12.0 g/dL 06/15/25, 08:47 Hct, (37-47) 37.1 % 06/15/25, 08:47 Plt Count, (150-450) 202 K/mm3 06/15/25, 08:47 CHEMISTRY Potassium, (3.3-5.1) 4.6 mmol/L 06/15/25, 08:47 Sodium, (133-145) 138 mmol/L 06/15/25, 08:47 Magnesium, (1.6-2.6) 2.4 mg/dL 10/08/24, 06:05 Phosphorus, (2.5-4.9) 3.8 mg/dL 10/08/24, 06:05 BUN, (4-19) 10 mg/dL 06/15/25, 08:47 Creatinine, (0.70-1.20) 0.74 mg/dL 06/15/25, 08:47 Glucose, (70-99) 128 mg/dL H 06/15/25, 08:47 POC Glucose, (74-106) 156 mg/dL H 02/10/25, 11:55 TSH, (0.358-3.740) 19.500 uIU/mL H 10/08/24, 06:05 COAG PT, (11.7-14.9) 13.1 SECONDS 06/15/25, 08:47 Pre-Assessment Diagnosis/Proposed Procedure Planned Operative Procedure(s): EGD Anesthesia History Anesthesia History - department operations manager: Anesthesia History - department operations manager Hx Hospitalization Yes: 09/2024 PNEUMONIA 07/22/25 13:00 Any Problems With Anesthesia No 07/22/25 13:00 Cholinesterase deficiency No 07/22/25 13:00 You/Your Family Experience No 07/22/25 13:00 fever (hyperthermia) with Relationship Recent Exposure to Contagious No 07/27/25 09:03 Disease Does patient have nerve No 07/22/25 13:00 stimulator Patient instructed to have device shut off --Does patient have Pacemaker No 07/27/25 09:03 or ICD? When Was Last Pacemaker Check QUESTION #4 FULL TEXT: You/Your Family Experience fever (hyperthermia) with Anesthesia Last Oral Intake Last Oral intake: Last Oral Intake NPO since 23:00 07/27/25 09:03 Meds taken in AM with sips of No 07/27/25 09:03 water? Meds patient instructed to take am of surgery PONV PONV - department operations manager: PONV - department operations manager Female Yes 07/22/25 13:00 HX of Motion Sickness No 07/22/25 13:00 HX of N/V After Surgery No 07/22/25 13:00 Non-Smoker No 07/22/25 13:00 Duration of Surgery greater No 07/22/25 13:00 than 60 minutes Number of Risk Factors 1 07/22/25 13:00 PONV Score Low Risk 07/22/25 13:00 Height & Weight Height & Weight: Anesthesia: Height & Weight Height 5 ft 4 in 07/27/25 09:03 Weight: 108 kg 07/27/25 09:03 Body Mass Index (BMI) 40.8 07/27/25 09:03 Respiratory Assessment Respiratory Assessment - department operations manager: Respiratory Tract Infection Hx - department operations manager Hx Respiratory Tract Infection No 07/22/25 13:00 STOP Sleep Apnea STOP Sleep Apnea - department operations manager: STOP Sleep Apnea - department operations manager Hx Hypertension Yes 07/22/25 13:00 Hx Sleep Apnea Yes 07/22/25 13:00 CPAP Yes 07/22/25 13:00 BIPAP No 07/22/25 13:00 Do you snore loudly (louder than talking or can be heard Do you often feel tired/ fatigued/ sleepy during daytime? Has anyone observed you stop breathing during sleep? STOP Results Positive 07/22/25 13:00 QUESTION #5 FULL TEXT : Do you snore loudly (louder than talking or can be heard through closed doors)? Tobacco Use History Tobacco Use History - department operations manager: Tobacco Use History - department operations manager Tobacco Use Smoking Status Current every day smoker 07/22/25 13:00 Hx Tobacco Use Yes 07/22/25 13:00 Years Smoking Packs Smoked per Day Smoking Cessation Date was within the last 15 years Hx Smoking Cessation Date Hx Smoking Cessation Counseling Hematologic Medial History Hematologic Hx - department operations manager: Hematologic Medical Hx - software test manager Hx of Blood Transfusion No 07/22/25 13:00 Hx of Transfusion in last 3 No 07/22/25 13:00 Months Date of Last Transfusion (if within last 3 months) Ever experience any problems No 07/22/25 13:00 with transfusion(s)? Specify any problems Hx of Preganancy in last 3 No 07/22/25 13:00 Months Nurse Filling Out Transfusion [facility]ISOR[facility] 07/22/25 13:00 & Questions: Date: 07/22/25 07/22/25 13:00 Time: 13:02 07/22/25 13:00 Patient unable to answer at this time (ie. confused, unrespo /Reproduction History /Reproductive History - department operations manager: /Reproductive Hx- department operations manager Hx Now No 07/22/25 13:00 Gestational Age (in weeks): EDC: Hx Hx Para Hx Section SAB No 07/22/25 13:00 Active Medications Active Medications: Current Medications Generic Name Dose Route Start Last Admin Trade Name Freq PRN Reason Stop Dose Admin Lactated Ringer's 1,000 mls @ 15 mls/hr 07/27/25 08:45 07/27/25 09:10 IV 15 mls/hr .Q48H GABRIEL Administration PFSH Medical History Non-alcoholic cirrhosis History of ulceration Wears glasses Cancer Anxiety Thyroid disease Diabetes Ambulates with cane Anemia Hepatitis High cholesterol Migraine headache Difficulty swallowing Heartburn Gastric reflux Smoker CPAP (continuous positive airway pressure) dependence Sleep apnea Asthma Shortness of breath on exertion Hoarseness Chronic cough Leg cramps History of echocardiogram History of stress test Cardiology follow-up encounter Mycoplasma pneumonia Controlled type 2 diabetes mellitus TIA (transient ischemic attack) CHINO (obstructive sleep apnea) Depression Cardiac microvascular disease CAD (coronary artery disease) Arthritis Lyme disease Sjogren syndrome with other organ involvement Hypothyroid Home Medications ?Medication ?Instructions ?Recorded ?Last Taken ?Type gabapentin 300 mg capsule 300 mg PO BID 08/18/2407/26 History levothyroxine 200 mcg tablet 200 mcg PO DAILY 10/07/24 07/26/25 History metoclopramide HCl 5 mg tablet 5 mg PO QAC #90 tabs 07/26/25 Rx (Reglan) bupropion HCl 150 mg tablet,12 hr 150 mg PO DAILY 06/0307/26/25 History sustained-release (Wellbutrin SR) ranolazine 500 mg tablet,extended 1,000 mg PO BID 06/0307/26/25 History release,12 hr metformin 500 mg tablet,extended 500 mg PO DAILY 01/2107/25/25 History release 24 hr vitamin E (dl, acetate) 180 mg 180 mg PO DAILY 5 02/09/25 History (400 unit) capsule Held on 07/27/25. Instructions: MD Ordered colestipol 1 gram tablet 1 g PO QDAY bile reflux sonny ritis 02/22/25 07/26/25 Rx #30 tabs pravastatin 40 mg tablet 40 mg PO QHS 1 month #30 tab s 03/09/25 07/26/25 Rx Allergy/AdvReac Type Severity Reaction Status Date / Time trazodone AdvReac OTHER Verified 07/27/25 09:00 Family History Mother Arthritis Hypertension HLD (hyperlipidemia) TIA (transient ischemic attack) Father Heart disease Hypertension HLD (hyperlipidemia) Surgical History History of esophagogastroduodenoscopy (EGD) History of cardiac catheterization History of partial hysterectomy History of cholecystectomy Social History Smoking Status: Current every day smoker (Patient smoked today.) tobacco type: cigarettes alcohol intake: never substance use type: does not use Review of Systems (Anesthesia) ROS Narrative System reviewed and no additional complaints, except as documented.
--- NOTE | 2025-07-27 09:55 | PCM.HP.STD ---
HPI - General General Date of Admission: 07/27/25 Date of Service: 07/27/25 Chief Complaint: gastric ulcer surveillance HPI Narrative NICO VITAL, is a 60 F who presents for the endoscopic evaluation of gastric ulcer OV 2.7.25- Reports daily heartburn and nightly reflux, abdominal bloating and pressure, stomach fullness and urgent bowel movements after eating with incomplete emptying. She denies difficulty chewing and swallowing, abdominal pain, constipation, diarrhea, hematochezia, and melena. Hospitalization 10.07.24 for mycoplasma pneumonia. Recently restarted metformin daily for hgb A1c of 6, increased to 6.7 at November testing; started on statin per PCP d/t elevated lipid levels. 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 Reports trying metoclopramide and states it caused immediate diarrhea and then stopped it. US abd/ Elastography 2..25- Liver measures 17.3 cm, Stiffness 17.33 kPa Liver Biopsy 3.25- Predominate patern: Mild macrosteatosis, Lymphocytic inflimmation in portal tract with very little interface hepatitis, Portal fibrosis with no bridging fibrosis, Occasional bile duct proliferation, No hepatocyte necrosis or malingnancy EGD 4.3.25- Tortous esophagus, Large hiatal hernia, Oozing gastric ulcer with visable vessel, Gastric antral vascular ectasia without bleeding, Non- bleeding gastric ulcers Path: Active chronic gastritis with intestinal metaplasia, Neg H. Pylori 4.3.25- Fib-4 1.31 OV 04.30.25 Fatigue and difficulty sleeping. Sx unchanged. Started super greens for bloating without relief. Unsure if taking metoclopramide. OV 8.6.25- Pt reports increase in heartburn and reflux. States she is taking Pantoprazole 40mg BID and Reglan but is not helpful. Also reports epigastric pain and nausea. States she is having multiple episodes of diarrhea daily. Says she cannot control her bowels. She is having increased episodes of heartburn/reflux even an empty stomach. She is also having dysphagia with both solid and liquid food but solid more than liquid. Hard, greasy or bulky food is hard to swallow at the throat level. Her BP is high and she has follow-up appointment with PCP today [facility] Medical History Non-alcoholic cirrhosis History of ulceration Wears glasses Cancer Anxiety Thyroid disease Diabetes Ambulates with cane Anemia Hepatitis High cholesterol Migraine headache Difficulty swallowing Heartburn Gastric reflux Smoker CPAP (continuous positive airway pressure) dependence Sleep apnea Asthma Shortness of breath on exertion Hoarseness Chronic cough Leg cramps History of echocardiogram History of stress test Cardiology follow-up encounter Mycoplasma pneumonia Controlled type 2 diabetes mellitus TIA (transient ischemic attack) CHINO (obstructive sleep apnea) Depression Cardiac microvascular disease CAD (coronary artery disease) Arthritis Lyme disease Sjogren syndrome with other organ involvement Hypothyroid Home Medications ?Medication ?Instructions ?Recorded ?Last Taken ?Type gabapentin 300 mg capsule 300 mg PO BID 08/18/24 07/26/25 History levothyroxine 200 mcg tablet 200 mcg PO DAILY 10/07/24 07/26/25 History metoclopramide HCl 5 mg tablet 5 mg PO QAC #90 tabs 10/11/24 07/26/25 Rx (Reglan) bupropion HCl 150 mg tablet,12 hr 150 mg PO DAILY 12/17/24 07/26/25 History sustained-release (Wellbutrin SR) ranolazine 500 mg tablet,extended 1,000 mg PO BID 12/17/24 07/26/25 History release,12 hr metformin 500 mg tablet,extended 500 mg PO DAILY 01/21/25 07/25/25 History release 24 hr vitamin E (dl, acetate) 180 mg 180 mg PO DAILY 02/07/25 02/09/25 History (400 unit) capsule Held on 07/27/25. Instructions: MD Ordered colestipol 1 gram tablet 1 g PO QDAY bile reflux gastritis 02/22/25 07/26/25 Rx #30 tabs pravastatin 40 mg tablet 40 mg PO QHS 1 month #30 tabs 03/09/25 07/26/25 Rx Allergy/AdvReac Type Severity Reaction Status Date / Time trazodone AdvReac OTHER Verified 07/27/25 09:00 Family History Mother Arthritis Hypertension HLD (hyperlipidemia) TIA (transient ischemic attack) Father Heart disease Hypertension HLD (hyperlipidemia) Surgical History History of esophagogastroduodenoscopy (EGD) History of cardiac catheterization History of partial hysterectomy History of cholecystectomy Social History Smoking Status: Current every day smoker (Patient smoked today.) tobacco type: cigarettes alcohol intake: never substance use type: does not use ROS Constitutional Constitutional: Denies fatigue, fever(s), poor appetite, weight gain or weight loss Gastrointestinal Gastrointestinal: Denies belching, bloating, change in bowel habits, change in stool character, chewing difficulty, coffee ground emesis, constipation, cramping, diarrhea, dyspepsia, dysphagia, early satiety, excessive flatus, fecal incontinence, heartburn, hematemesis, hematochezia, hemorrhoids, loose stools, melena, nausea, odynophagia, rectal bleeding, tenesmus, vomiting or weight changes Vital Signs Vital Signs Vital Signs: 07/27/25 09:03 07/27/25 09:03 07/27/25 09:26 Temperature 97.7 F L 97.7 F L Temperature Source Temporal Pulse Rate 82 82 Respiratory Rate 16 16 Respiratory Pattern Normal Blood Pressure 147/86 H 147/86 H Blood Pressure Mean 106 Blood Pressure Source Monitor Blood Pressure Position Semi-Fowlers Blood Pressure Location Left Arm Pulse Ox 97 97 Oxygen Delivery Method Room Air Room Air Weight Weight: 238 lb 1.588 oz Body Mass Index (BMI) 40.8 Physical Exam Const alert, oriented x3, no apparent distress and healthy appearing General Appearance: cooperative GI normal to inspection, nondistended, normoactive bowel sounds, soft to palpation, non-tender and non-distended Percussion: normal to percussion Rectal Exam: deferred Assessment & Plan Assessment/Plan (1) Gastric ulcer: QUALIFIERS: Gastric ulcer chronicity: chronic Gastric ulcer complication status: with hemorrhage Qualified Code(s): K25.4 - Chronic or unspecified gastric ulcer with hemorrhage (2) HH (hiatus hernia): (3) Metabolic dysfunction-associated steatotic liver disease (MASLD): PLAN: Assessment and Plan Assessment and Plan (1) Gastroparesis: Status: Acute Plan: Gastric emptying study results of 97.49 minutes, she is newly diagnosed with diabetes mellitus type which could possibly be delaying gastric emptying. EGD 4.3.25- Tortous esophagus, Large hiatal hernia, Oozing gastric ulcer with visable vessel, Gastric antral vascular ectasia without bleeding, Non- bleeding gastric ulcers Path: Active chronic gastritis with intestinal metaplasia, Neg H. Pylori She failed diet low FODMAP, metoclopramide, resistant GERD symptoms with large hiatus hernia complicated with esophageal dysphagia. pH monitoring, Lindquist test and manometry ordered. Discussed the option of surgery with a diagram and patient agreed. Refer to surgery for surgical opinion. She still smokes cigarettes. Advised to quit smoking as worsening her symptoms of GERD. She Is on bupropion. I offered nicotine patch and she will talk to her PCP. Follow-up in 3 months (2) Metabolic dysfunction-associated steatotic liver disease (MASLD): Status: Chronic Plan: Liver biopsy on 01/24/2025 reported mild macrosteatosis. Lymphocytic inflammation in portal tract with very little interface hepatitis stage II. Portal fibrosis with no bridging fibrosis with occasional duct proliferation. Stage II interface hepatitis though it is not mentioned in the biopsy report about limiting plate disruption but stage II means limiting plate damage/disruption with suspicion of autoimmune hepatitis Autoimmune profile ordered There is no NAVJOT alts quantitative analysis. ALP 120 but ALT and AST are in normal limit. Workup was ordered last time but not done yet. Advised her to complete the blood test Biopsy also shows patient has MASLD. Patient is still gaining weight (3) HH (hiatus hernia): Status: Chronic Plan: As mentioned above Orders: Orders Esophageal Manometry 1 Month E11.9 - Type 2 diabetes mellitus without complications, K21.9 - Gastro-esophageal reflux disease without esophagitis, K22.70 - Stratton's esophagus without dysplasia, K44.9 - Diaphragmatic hernia without obstruction or gangrene, K75.81 - Nonalcoholic steatohepatitis (KEENAN), K76.0 - Fatty (change of) liver, not elsewhere classified NAVJOT w/ Reflex Mult Confirm Today E11.9 - Type 2 diabetes mellitus without complications, K21.9 - Gastro-esophageal reflux disease without esophagitis, K22.70 - Stratton's esophagus without dysplasia, K44.9 - Diaphragmatic hernia without obstruction or gangrene, K75.81 - Nonalcoholic steatohepatitis (KEENAN), K76.0 - Fatty (change of) liver, not elsewhere classified CBC W/Diff, Automated Today E11.9 - Type 2 diabetes mellitus without complications, K21.9 - Gastro-esophageal reflux disease without esophagitis, K22.70 - Stratton's esophagus without dysplasia, K44.9 - Diaphragmatic hernia without obstruction or gangrene, K75.81 - Nonalcoholic steatohepatitis (KEENAN), K76.0 - Fatty (change of) liver, not elsewhere classified EGD with 48 pH probe 1 Month E11.9 - Type 2 diabetes mellitus without complications, K22.70 - Stratton's esophagus without dysplasia, K31.84 - Gastroparesis, K44.9 - Diaphragmatic hernia without obstruction or gangrene, K76.0 - Fatty (change of) liver, not elsewhere classified
--- NOTE | 2025-07-27 10:25 | OP.EGD_ITS ---
Patient Name: Rubina Greenberg Procedure Date: 07/27/2025 9:59 AM Date of : 1965 Age: 60 Procedure: Upper GI endoscopy Indications: Heartburn, Suspected esophageal reflux Providers: Ander Mccloud DO Referring MD: Daniella Gomez Medicines: Monitored Anesthesia Care Patient Profile: This is a 60 year old female. Refer to note in patient chart for documentation of history and physical. Patient has symptoms of chronic dyspepsia, acute heartburn and acute nausea. Complications: No immediate complications. Procedure: Pre-Anesthesia Assessment: - Prior to the procedure, a History and Physical was performed, and patient medications and allergies were reviewed. The patient is competent. The risks and benefits of the procedure and the sedation options and risks were discussed with the patient. All questions were answered and informed consent was obtained. Patient identification and proposed procedure were verified. Mental Status Examination: alert and oriented. Airway Examination: normal oropharyngeal airway and neck mobility. Respiratory Examination: clear to auscultation. CV Examination: normal. Prophylactic Antibiotics: The patient does not require prophylactic antibiotics. Prior Anticoagulants: The patient has taken no anticoagulant or antiplatelet agents. ASA Grade Assessment: II - A patient with mild systemic disease. After reviewing the risks and benefits, the patient was deemed in satisfactory condition to undergo the procedure. The anesthesia plan was to use monitored anesthesia care (MAC). Immediately prior to administration of medications, the patient was re-assessed for adequacy to receive sedatives. The heart rate, respiratory rate, oxygen saturations, blood pressure, adequacy of pulmonary ventilation, and response to care were monitored throughout the procedure. The physical status of the patient was re-assessed after the procedure. After obtaining informed consent, the endoscope was passed under direct vision. Throughout the procedure, the patient's blood pressure, pulse, and oxygen saturations were monitored continuously. The gastroscope was introduced through the mouth, and advanced to the second part of duodenum. The upper GI endoscopy was accomplished without difficulty. The patient tolerated the procedure well. Scope In: 10:12:06 AM Scope Out: 10:16:02 AM Total Procedure Duration Time 0 hours 3 minutes 56 seconds Findings: The examined esophagus was normal. Patchy mild inflammation characterized by erosions was found in the gastric body. Biopsies were taken with a cold forceps for histology. Biopsies were taken with a cold forceps for Helicobacter pylori testing. Verification of patient identification for the specimen was done. No gross lesions were noted in the entire examined duodenum. Impression: - Normal esophagus. - Gastritis. Biopsied. - No gross lesions in the entire examined duodenum. Recommendation: - Await pathology results. - Continue present medications. Procedure Code(s): --- Professional --- 33846, Esophagogastroduodenoscopy, flexible, transoral; with biopsy, single or multiple CPT copyright 2021 [employer] [place] [employer]. All rights reserved. The codes documented in this report are preliminary and upon fashion styling intern review may be revised to meet current compliance requirements. Ander Mccloud DO 07/27/2025 10:25:32 AM This report has been signed electronically. Number of Addenda: 0 Note Initiated On: 07/27/2025 9:59 AM
--- NOTE | 2025-07-27 10:25 | PCM.POST.ANE ---
Anesthesia: Postop Eval I Current Vital Signs Temperature: 97.1 F Pulse Rate: 74 Blood Pressure: 93/59 Respiratory Rate: 16 Pulse Ox: 95 Oxygen Delivery Method: Room Air Assessment Airway patent: Yes Spontaneous unlabored respirations: Yes Mental status: Asleep nausea: No Vomiting: No Anesthesia Complication: No Fluid Hydration Crystalloid volume administer (ml): 400 Total IV fluid infused: 400 Progress Note Anesthesia document: Postop Eval 1 completed: Yes
--- NOTE | 2025-07-27 10:26 | OP.PROVAT_ITS ---
07/27/2025 Daniella Gomez Re : Upper GI endoscopy procedure for Rubina Greenberg Dear Benny This procedure was performed on Sunday, July 27, 2025. My impressions and recommendations are as follows: Impressions : - Normal esophagus. - Gastritis. Biopsied. - No gross lesions in the entire examined duodenum. Recommendations : - Await pathology results. - Continue present medications. My findings are described in the full procedure note, which is enclosed. If I can be of further assistance, please feel free to contact me at . Sincerely, Ander Mccloud, 07/27/2025 10:25:32 AM This report has been signed electronically.
--- NOTE | 2025-07-27 10:30 | EGD_PTH ---
PATIENT: NICO VITAL LOC: EN U#:[id number] AGE/SX: 60/F ROOM: RE07/27/[address]: Dr. Ander Mccloud DO : 1965 BED: DIS: 07/27/2025 SPEC #: [id number] RECD: 07/27/25 11:14 STATUS: PAXTON DOMONIQUE #: [id number] ELOISA: 07/27/25 10:[address]: Ander Mccloud DEPT: SURGICAL PATHOLOGY RECD BY: Ángel Moreno ENTERED: 07/27/25 11:35 SP TYPE: EGD BIOPSY JARVIS DR: Meg Zapata, SAMPLE WEAVER-C Tissues: A - Gastric mucous membrane B - Gastric mucous membrane Procedures: Immunohistochemical Stains Surgery Specimen Level IV HEADER OPERATION: EGD with biopsy PRE-OP DIAGNOSIS: Gastric ulcer, hiatus hernia, MASLD TISSUE SUBMITTED: A- Gastric antrum biopsy, B- Gastric body biopsy MICROSCOPIC DIAGNOSIS A. Stomach, antrum, biopsies: - Oxynto-pyloric mucosa with slight chronic inflammation - An immunohistochemical stain for Helicobacter pylori is negative B. Stomach, body: * Oxynto-pyloric mucosa with chronic inflammation and focal goblet cell metaplasia * An immunohistochemical stain for Helicobacter pylori is negative MICROSCOPIC DESCRIPTION Slides are reviewed. All matched controls reacted appropriately. These tests were developed and their performance characteristics determined by [facility]. They may not have been cleared or approved by the U.S. Food and Drug Administration. The FDA has determined that such clearance or approval is not necessary. The above immunohistochemical/dualISH markers are viewed by the Pathologist. GROSS DESCRIPTION A. Received in fixative is one container labeled with the patient's name and designated Gastric antrum biopsy. The specimen consists of two irregular fragments of light holbrook tissue that measure 0.6 and 0.7 cm. The specimen is totally submitted in one cassette. B. Received in fixative is one container labeled with the patient's name and designated Gastric body biopsy. The specimen consists of two irregular fragments of light holbrook tissue that measure 0.4 and 0.6 cm. The specimen is totally submitted in one cassette. IN 07/27/2025 CPT:68499q0,[id number]
--- NOTE | 2025-07-27 13:26 | PCM.POSTANE2 ---
Anesthesia Postop Eval I Sum Postop Eval Completion status Anesthesia document: Postop Eval 1 completed: Yes Anesthesia Postop Eval I Summary Anesthesia Postop Eval I Summary: Anesthesia Postop Eval I: Assessment Summary Airway patent Yes 07/27/25 10:26 [email or web address] Spontaneous unlabored Yes 07/27/25 10:26 [email or web address] respirations Mental status Asleep 07/27/25 10:26 [email or web address] nausea No 07/27/25 10:26 [email or web address] Vomiting No 07/27/25 10:26 [email or web address] Anesthesia Postop Eval I: Fluid Summary Crystalloid volume administer 400 07/27/25 10:26 [email or web address] (ml) Colloids volume administered ( ml) Blood Product volume administered (ml) Total IV fluid infused 400 07/27/25 10:26 [email or web address] Anesthesia Postop Eval I: Summary Notes Anesthesia Complication No 07/27/25 10:26 [email or web address] Anesthesia Complication Comment: Post-operative progress note Anesthesia: Postop Eval II Evaluation Mental status: Awake and Calm Pain Level: 1 nausea: No Vomiting: No Complications Anesthesia Complication: No
== END 2025-07-27 11:13 | disposition home or self-care (01) ==
LOC: EN 08:36 → AC 08:37
PROVIDERS: PCP Nurse Practitioner Family; Referring Provider Nurse Practitioner Family; Visit Provider Internal Medicine Gastroenterology
PROC: 0DJ08ZZ Inspection of Upper Intestinal Tract, Via Natural or Artificial Opening Endoscopic (ICD-10-PCS; CPT 43235; principal; 2025-07-27 10:25)
DX: K25.4 Chronic or unspecified gastric ulcer with hemorrhage (principal); E11.43 Type 2 diabetes mellitus with diabetic autonomic (poly)neuropathy; K31.84 Gastroparesis; K44.9 Diaphragmatic hernia without obstruction or gangrene; Z90.710 Acquired absence of both cervix and uterus; I25.10 Atherosclerotic heart disease of native coronary artery without angina pectoris; E78.00 Pure hypercholesterolemia, unspecified; G47.33 Obstructive sleep apnea (adult) (pediatric); Z99.89 Dependence on other enabling machines and devices; Z86.73 Personal history of transient ischemic attack (TIA), and cerebral infarction without residual deficits; E03.9 Hypothyroidism, unspecified; Z79.890 Hormone replacement therapy; F41.9 Anxiety disorder, unspecified; F32.A Depression, unspecified; Z79.899 Other long term (current) drug therapy; Z79.84 Long term (current) use of oral hypoglycemic drugs; Z90.49 Acquired absence of other specified parts of digestive tract; F17.210 Nicotine dependence, cigarettes, uncomplicated; E88.810 Metabolic syndrome; K21.9 Gastro-esophageal reflux disease without esophagitis; K75.81 Nonalcoholic steatohepatitis (NASH); K22.70 Barrett's esophagus without dysplasia; K29.50 Unspecified chronic gastritis without bleeding; K31.A19 Gastric intestinal metaplasia without dysplasia, unspecified site
CPT/HCPCS: 43239; 82962; 88305; 88342; J2405

== ENCOUNTER 2025-09-10 13:18 | Emergency (ER) | payer MEDICAID, SELFPAY ==
[2025-09-10] VITALS (8 sets, daily range): BP systolic 185–205; BP diastolic 79–108; PULSE 51–74; RESP 18–25; TEMP 36.4–37.1; O2SAT 98–100; BMI 41.2
[2025-09-10] MEDS: 0.9% Normal Saline (1000mL) 1,000 ML 999 ML IV (14:17)
[2025-09-10 14:39] LABS: Hematocrit 40.5 % (37-47); Hemoglobin 13.1 g/dL (12.0-15.0); Immature Granulocytes Count 0.030 X10^3/uL (0.0-0.0); Mean Corp Hgb Conc 32.3 g/dL (32-36); Mean Corpuscular Volume 99.5 fL (81-99); Mean Platelet Vol. 10.3 fl (6.2-12.0); NRBC Flagged by Analyzer 0 % (0-5); Platelet Count 283 K/mm3 (150-450); RBC Distribution Width CV 16.5 % (11.6-14.6); RBC Distribution Width SD 60.1 fl (35.1-43.9); Red Blood Count 4.07 M/mm3 (4.2-5.4); White Blood Count 7.7 K/mm3 (4.4-11.0)
[2025-09-10 14:58] LABS: AST(SGOT) 22 U/L (<=31); Alanine Aminotransfer ALT/SGPT 18 U/L (<=34); Albumin, Serum 4.4 g/dL (3.5-5.0); Alkaline Phosphatase 104 U/L (35-104); Anion Gap 12 (5-15); BUN 10 mg/dL (4-19); BUN/Creat Ratio 11.3 RATIO (10-20); Calcium,Total 9.8 mg/dL (7.6-11.0); Carbon Dioxide 22.9 mmol/L (21.0-32.0); Chloride 104 mmol/L (98-108); Estimated Creatinine Clearance 86.02 ml/min (50-250); Globulin 3.2 g/dL (2.2-4.2); Glucose 136 mg/dL (70-99); Potassium 4.5 mmol/L (3.3-5.1)
--- NOTE | 2025-09-10 15:31 | CT_ITS ---
PROCEDURE: CT/CTA Chst, Abd, Pel W and/or WO
[2025-09-10 15:41] LABS: Mucous, Urine 0 SEEN /hpf (<or=2+)
[2025-09-10 15:43] LABS: Color, Urine Yellow (Yellow); Glucose, Dipstick Normal (Normal); Ketone-Dipstick Negative (Negative); Leukocyte Esterase-Dipstick 25 /ul (Negative); Nitrite-Dipstick Positive (Negative); Occult Blood-Urine 10 /ul (Negative); Protein-Dipstick 15 mg/dl (Negative); Specific Gravity, Urine 1.010 (1.002-1.030); Urine Bilirubin Dipstick Negative (Negative)
--- NOTE | 2025-09-10 15:57 | EX.ED.DYSGE1 ---
HPI History of Present Illness Chief Complaint: Abd Pain Narrative Narrative: Patient is a 60-year-old female presenting to the emergency department for right flank pain. Patient states that the pain started on Friday almost a week ago. States that it is fairly constant however will worsen at times. States it feels like it is spasming. She denies any history of kidney stones or kidney infection. Has a past medical history of a gastric ulcer, KEENAN, type 2 diabetes, hypertension, Stratton's esophagus, IBS. Patient states that she went to the urgent care earlier and was diagnosed with a urinary tract infection and they sent her here for evaluation of her kidneys to make sure she did not have any infection or stones. Endorses nausea with 2 episodes of nonbilious, nonbloody vomiting on Friday. Patient denies any fever, chills, abdominal pain, dysuria, hematuria. States she always has bowel issues, unchanged from baseline today. [facility] Medical History Non-alcoholic cirrhosis History of ulceration Wears glasses Cancer Anxiety Thyroid disease Diabetes Ambulates with cane Anemia Hepatitis High cholesterol Migraine headache Difficulty swallowing Heartburn Gastric reflux Smoker CPAP (continuous positive airway pressure) dependence Sleep apnea Asthma Shortness of breath on exertion Hoarseness Chronic cough Leg cramps History of echocardiogram History of stress test Cardiology follow-up encounter Mycoplasma pneumonia Controlled type 2 diabetes mellitus TIA (transient ischemic attack) CHINO (obstructive sleep apnea) Depression Cardiac microvascular disease CAD (coronary artery disease) Arthritis Lyme disease Sjogren syndrome with other organ involvement Hypothyroid Home Medications ?Medication ?Instructions ?Recorded ?Last Taken ?Type gabapentin 300 mg capsule 300 mg PO BID 08/18/24 07/26/25 History levothyroxine 200 mcg tablet 200 mcg PO DAILY 10/07/24 07/26/25 History metoclopramide HCl 5 mg tablet 5 mg PO [facility] #90 tabs 10/11/24 07/26/25 Rx (Reglan) bupropion HCl 150 mg tablet,12 hr 150 mg PO DAILY 12/17/24 07/26/25 History sustained-release (Wellbutrin SR) ranolazine 500 mg tablet,extended 1,000 mg PO BID 12/17/24 07/26/25 History release,12 hr metformin 500 mg tablet,extended 500 mg PO DAILY 01/21/25 07/25/25 History release 24 hr vitamin E (dl, acetate) 180 mg 180 mg PO DAILY 02/07/25 02/09/25 History (400 unit) capsule Held on 07/27/25. Instructions: MD Ordered colestipol 1 gram tablet 1 g PO QDAY bile reflux gastritis 02/22/25 07/26/25 Rx #30 tabs cephalexin 500 mg capsule 500 mg PO Q6 #40 CAPSULES 09/10/25 Unknown Rx famotidine 20 mg tablet 20 mg PO QHS 09/10/25 Unknown History ondansetron 4 mg disintegrating 4 mg PO Q8H PRN PRN Nausea #10 tabs 09/10/25 Unknown Rx tablet pravastatin 10 mg tablet 10 mg PO DAILY 09/10/25 Unknown History Allergy/AdvReac Type Severity Reaction Status Date / Time trazodone AdvReac OTHER Verified 09/10/25 13:21 Family History Mother Arthritis Hypertension HLD (hyperlipidemia) TIA (transient ischemic attack) Father Heart disease Hypertension HLD (hyperlipidemia) Surgical History History of esophagogastroduodenoscopy (EGD) History of cardiac catheterization History of partial hysterectomy History of cholecystectomy Social History Smoking Status: Current every day smoker tobacco type: cigarettes alcohol intake: never substance use type: does not use ROS ROS ED ROS Narrative see HPI EXAM Physical Exam Narrative Exam Narrative: Vital signs: Reviewed General: Alert and oriented x 3. No acute distress HEENT: Head is normocephalic and atraumatic, sinuses nontender, pupils equal round and reactive. Nares are patent. Oropharynx and throat exams normal. Neck: Supple without lymphadenopathy nontender Cardiovascular: Regular rate and rhythm, no murmurs. No rubs or gallops. Normal S1 and S2. Radial and DP/PT pulses are 2+ and symmetric throughout. Respiratory: Clear to auscultation bilaterally. No wheezes, rales, rhonchi Abdominal: Soft and nontender. No pulsatile abdominal mass or bruit. Normal bowel sounds. No guarding or rebound. Nonsurgical abdomen. There is right CVA tenderness to palpation. There is a tense muscle felt along the right CVA. No left CVA tenderness to palpation. Extremities: No tenderness. No bruising. Normal range of motion. Normal sensation. Skin: No rash or redness. Neurological: Cranial nerves II through XII are grossly intact. Normal strength and sensation. Normal cerebellar function The rest of the physical exam is unremarkable Const Vital Signs: 09/10/25 13:22 09/10/25 13:24 09/10/25 14:24 Temperature 98 F 98 F 98.4 F Temperature Source Oral Oral Oral Pulse Rate 74 74 61 Respiratory Rate 18 18 21 H Blood Pressure 205/108 H 205/108 H 185/85 H Blood Pressure Mean 140 140 118 Pulse Ox 98 98 99 Oxygen Delivery Method Room Air Room Air Room Air 09/10/25 15:00 09/10/25 15:20 09/10/25 15:54 Temperature 98.4 F 97.8 F 97.6 F L Temperature Source Oral Oral Oral Pulse Rate 51 L 58 L 56 L Respiratory Rate 19 H 25 H 20 H Blood Pressure 187/79 H 198/88 H 190/84 H Blood Pressure Mean 115 124 119 Pulse Ox 98 98 100 Oxygen Delivery Method Room Air Room Air Room Air 09/10/25 16:37 09/10/25 17:00 Temperature 98.7 F 97.5 F L Temperature Source Oral Pulse Rate 56 L 57 L Respiratory Rate 20 H 19 H Blood Pressure 188/89 H 186/85 H Blood Pressure Mean 122 118 Pulse Ox 99 100 Oxygen Delivery Method Room Air MDM MDM MDM Narrative Medical decision making narrative: Patient is a 60-year-old female presenting to the emergency department for right sided flank pain. Patient was seen and examined. Vitals are stable, she is hypertensive at 205/108. She is not tachycardic. She is afebrile saturating 98% on room air. She is not tachypneic. Differential includes but is not limited to: Given her hypertension and flank pain, aortic pathology including AAA or dissection however less likely given physical exam. I think her BP is elevated due to pain. Nephrolithiasis, pyelonephritis, UTI, musculoskeletal Patient given 1 L normal saline, Zofran, Toradol for symptomatic control. CBC with no leukocytosis and a normal hemoglobin. CMP with no significant abnormalities. Normal kidney function. Urinalysis with positive nitrites and leukocyte esterase consistent with urinary tract infection. 1 g Rocephin given for urinary tract infection. Patient was reevaluated, pain is improved after Toradol. Nausea is improved after Zofran. Currently receiving antibiotics. Waiting on CT results at this time. No aortic pathology seen on my review of the CT. CTA shows no acute abnormalities. There is no aortic aneurysm or dissection. There is no renal mass, hydronephrosis, stones. With the patient's evidence of urinary tract infection with right sided CVA tenderness will treat for pyelonephritis. Was discharged home with Zofran. Antibiotics. Patient discharged from the Emergency Department. I do not feel that the patient's evaluation reveals any acute reason for admission at this time. I instructed them to either follow-up with their primary care physician or promptly return to the Emergency Department for reevaluation should symptoms worsen or new symptoms develop. I explained what symptoms would indicate the need to return to the emergency department. Shared decision making was used. The patient voiced understanding of the treatment plan and is agreeable with it. Clinical impression: Pyelonephritis History & Record Review Discussion w/independent historian: Patient Lab Data Attestation: I reviewed the patient's lab results. Labs: Laboratory Results - last 24 hr 09/10/25 09/10/25 13:34 15:30 WBC 7.7 RBC 4.07 L Hgb 13.1 Hct 40.5 MCV 99.5 H MCH 32.2 H MCHC 32.3 RDW Std Deviation 60.1 H RDW Coeff of Mckenzie 16.5 H Plt Count 283 MPV 10.3 Immature Gran % (Auto) 0.400 Neut % (Auto) 67.4 Lymph % (Auto) 22.8 Mora % (Auto) 4.9 Eos % (Auto) 3.9 Baso % (Auto) 0.6 Absolute Neuts (auto) 5.2 Absolute Lymphs (auto) 1.76 Nucleated RBC % 0 Sodium 139 Potassium 4.5 Chloride 104 Carbon Dioxide 22.9 Anion Gap 12 BUN 10 Creatinine 0.86 Estim Creat Clear Calc 86.02 Est GFR (MDRD) Non-Af 79 BUN/Creatinine Ratio 11.3 Glucose 136 H Calcium 9.8 Total Bilirubin 0.37 AST 22 ALT 18 Alkaline Phosphatase 104 Total Protein 7.6 Albumin 4.4 Globulin 3.2 Albumin/Globulin Ratio 1.4 Urine Color Yellow Urine Clarity Clear Urine pH 7.0 Ur Specific [place] 1.010 Urine Protein 15 H Urine Glucose (UA) Normal Urine Ketones Negative Urine Occult Blood 10 H Urine Nitrite Positive H Urine Bilirubin Negative Urine Urobilinogen Normal Ur Leukocyte Esterase 25 H Urine RBC 0-5 SEEN Urine WBC 0-5 SEEN Ur Squamous Epith Cells 0-5 SEEN Urine Bacteria 1+ Urine Mucus 0 SEEN Radiography Diagnostic Testing: Clinical Impression(s) from Imaging Studies Chest/Abdomen/Pelvis CTA 09/10/25 15:31 IMPRESSION: No acute abnormality Reading Location: [facility] Discharge Plan Triage Chief Complaint: Abd Pain ED Provider: Rissa Smith Dx/Rx/DC Orders Clinical Impression: Pyelonephritis, Right flank pain Instructions: ED Pyelonephritis, Female (Adult) Prescriptions: New cephalexin 500 mg capsule 500 mg PO Q6 Qty: 40 0RF ondansetron 4 mg tablet,disintegrating 4 mg PO Q8H PRN PRN (Reason: Nausea) Qty: 10 0RF No Action gabapentin 300 mg capsule 300 mg PO BID ranolazine 500 mg tablet extended release 12 hr 1,000 mg PO BID bupropion HCl [Wellbutrin SR] 150 mg tablet sustained-release 12 hr 150 mg PO DAILY metformin 500 mg tablet extended release 24 hr 500 mg PO DAILY levothyroxine 200 mcg tablet 200 mcg PO DAILY vitamin E (dl, acetate) 180 mg (400 unit) capsule 180 mg PO DAILY Patient Comments: per dr. hayden famotidine 20 mg tablet 20 mg PO QHS pravastatin 10 mg tablet 10 mg PO DAILY metoclopramide HCl [Reglan] 5 mg tablet 5 mg PO QAC Qty: 90 1RF Rx Instructions: administer 30 minutes before meals colestipol 1 gram tablet 1 g PO QDAY Qty: 30 2RF Primary Care Provider: Meg Zapata Referrals: Meg Zapata, FARM [employer]ACILITY MANAGER-[employer] [Primary Care Provider, Medical] - As soon as possible Activity Restrictions/Additional Instructions: Take the antibiotic as prescribed. If you develop any worsening pain, nausea, vomiting, fevers or chills you need to return to the emergency department. Your evaluation in the Emergency Department did not reveal any acute reason for admission. However, I want to emphasize that you may be early in the course of a disease process or illness even if it is not present. For this reason you should follow-up within 24 hours for reevaluation with either your primary care physician or if necessary back here in the Emergency Department. You should return to the Emergency Department immediately if your symptoms worsen or new symptoms develop. Print Language: Urdu
[2025-09-10 16:05] LABS: Red Blood Cells-Urine 0-5 SEEN /hpf (0-5); Squamous Epithelial Cells - UA 0-5 SEEN /hpf (5-10)
--- NOTE | 2025-09-10 16:10 | CM.ED ---
Social Work Date of referral: 09/10/2025 Reason for referral: Advanced Care Directives (ACD's) not on file. Referred by: Social Work identification Patient provided consent to social work visit. counter supply worker requested patient bring in a copy of ACD's which patient agreed to do. Zaira Gamboa, GUM MAKER, PROPERTY OFFICER
== END 2025-09-10 23:00 | disposition home or self-care (01) ==
LOC: ED 13:55
PROVIDERS: Emergency Provider Student in an Organized Health Care Education/Training Program; PCP Nurse Practitioner Family; Visit Provider Student in an Organized Health Care Education/Training Program
DX: N12 Tubulo-interstitial nephritis, not specified as acute or chronic (principal); E11.9 Type 2 diabetes mellitus without complications; R10.A1 Flank pain, right side; I25.10 Atherosclerotic heart disease of native coronary artery without angina pectoris; E78.00 Pure hypercholesterolemia, unspecified; I10 Essential (primary) hypertension; Z79.890 Hormone replacement therapy; Z79.899 Other long term (current) drug therapy
CPT/HCPCS: 71275; 74174; 80053; 81001; 85025; 96361; 96365; 96375; 99284; Q9967; A4216; J2405